=== PATIENT | male | born 1955 | race Hispanic/Latino ===

== ENCOUNTER 2018-06-01 18:53 | Inpatient (IN) | payer OTHER ==
[2018-06-01] MEDS ORDERED: Sodium Chloride 0.9% 1,000 ML IV STA ×2 (19:09→20:35)
[2018-06-01 19:47] LABS: BASO % 0.3 % (0.0-2.0); EOS % 0.2 % (0.0-4.0); HEMOGLOBIN 15.2 g/dL (12.0-18.0); LYMPH # 0.5 K/uL (1.0-4.3); LYMPH % 9.6 % (20.0-40.0); MEAN CELL VOLUME 91.9 fl (80.0-94.0); MEAN CORPUSCULAR HEMOGLOBIN 31.2 pg (27.0-31.0); MEAN CORPUSCULAR HGB CONC 33.9 g/dL (33.0-37.0); MEAN PLATELET VOLUME 8.3 fl (7.2-11.7); MONO % 0.5 % (0.0-10.0); NEUT # 4.5 K/uL (1.8-7.0); NEUT % 89.4 % (50.0-75.0); NRBC % 0.1 % (0.0-0.0); PLATELET COUNT 160 K/uL (130-400); RBC 4.86 Mil/uL (4.40-5.90); RED CELL DISTRIBUTION WIDTH 13.1 % (11.5-14.5)
[2018-06-01 19:47] LABS: VENOUS BLOOD GAS BASE EXCESS 0.4 mmol/L (0.0-2.0); VENOUS BLOOD GAS PCO2 30 mmHg (40-60); VENOUS BLOOD GAS PO2 55 mm/Hg (30-55); VENOUS BLOOD PH 7.49 (7.32-7.43)
[2018-06-01 19:48] LABS: INR 1.2; PROTHROMBIN TIME 14.6 Seconds (9.8-13.1)
[2018-06-01 19:51] LABS: PARTIAL THROMBOPLASTIN TIME 26.6 Seconds (25.6-37.1)
--- NOTE | 2018-06-01 19:57 | ED PDOC ---
HPI: Chest Pain Time Seen by Provider: 06/01/18 19:35 Chief Complaint (Nursing): Chest Pain Chief Complaint (Provider): Chest Pain History Per: Patient History/Exam Limitations: no limitations Additional Complaint(s): Patient is a 62 year old male with no past medical history, who presents to the emergency department complaining of a spiked temperature of 104 tympanic that was read at home. He is here with and states that he had chest pressure case finisher that has gone away now. Patient state he took x2 Ellis Aspirin case finisher. He is also complaining of generalized weakness for x1 day but no vomiting, diarrhea, dizziness, URI, or urinary symptoms. PMD: No provider Past Medical History Reviewed: Historical Data, Nursing Documentation, Vital Signs Vital Signs: Last Vital Signs Temp 104.5 F H 06/01/18 19:15 Pulse 118 H 06/01/18 19:41 Resp 24 06/01/18 19:41 BP 153/98 H 06/01/18 19:41 Pulse Ox 95 06/01/18 19:41 - Medical History PMH: No Chronic Diseases - Surgical History Surgical History: No Surg Hx - Family History Family History: States: Unknown Family Hx - Social History Current smoker - smoking cessation education provided: No Alcohol: None Drugs: Denies - Allergies Allergies/Adverse Reactions: Allergies Allergy/AdvReac Type Severity Reaction Status Date / Time No Known Allergies Allergy Verified 06/01/18 19:00 Review of Systems ROS Statement: Except As Marked, All Systems Reviewed And Found Negative Constitutional: Positive for: Fever ENT: Negative for: Nose Congestion Cardiovascular: Positive for: Chest Pain Respiratory: Negative for: Cough Gastrointestinal: Negative for: Vomiting, Diarrhea Genitourinary Male: Negative for: Dysuria, Frequency, Incontinence, Hematuria Neurological: Positive for: Weakness. Negative for: Dizziness Physical Exam - Reviewed Nursing Documentation Reviewed: Yes Vital Signs Reviewed: Yes - Physical Exam Appears: Positive for: Non-toxic, No Acute Distress Head Exam: Positive for: ATRAUMATIC, NORMOCEPHALIC Skin: Positive for: Diaphoresis Eye Exam: Positive for: Normal appearance, EOMI, PERRL ENT: Positive for: Normal ENT Inspection Neck: Positive for: Normal, Painless ROM, Supple Cardiovascular/Chest: Positive for: Regular Rate, Rhythm. Negative for: Murmur Respiratory: Positive for: Normal Breath Sounds. Negative for: Respiratory Distress Gastrointestinal/Abdominal: Positive for: Normal Exam, Soft. Negative for: Tenderness Back: Positive for: Normal Inspection. Negative for: L CVA Tenderness, R CVA Tenderness, Vertebral Tenderness Extremity: Positive for: Normal ROM. Negative for: Pedal Edema, Deformity Neurological/Psych: Positive for: Alert, Oriented - Laboratory Results Result Diagrams: 06/01/18 19:30 06/01/18 19:30 Lab Results: pO2 55 mm/Hg (30-55) 06/01/18 19:25 VBG pH 7.49 (7.32-7.43) H 06/01/18 19:25 VBG pCO2 30 mmHg (40-60) L 06/01/18 19:25 VBG HCO3 25.1 mmol/L 06/01/18 19:25 VBG Total CO2 23.8 mmol/L (22-28) 06/01/18 19:25 VBG O2 Sat (Calc) 96.2 % (40-65) H 06/01/18 19:25 VBG Base Excess 0.4 mmol/L (0.0-2.0) 06/01/18 19:25 VBG Potassium 3.1 mmol/L (3.6-5.2) L 06/01/18 19:25 Sodium 133.0 mmol/L (132-148) 06/01/18 19:25 Chloride 98.0 mmol/L (98-107) 06/01/18 19:25 Glucose 122 mg/dL (75-110) H 06/01/18 19:25 Lactate 2.4 mmol/L (0.7-2.1) H 06/01/18 19:25 FiO2 21.0 % 06/01/18 19:25 PT 14.6 Seconds (9.8-13.1) H 06/01/18 19:30 INR 1.2 06/01/18 19:30 APTT 26.6 Seconds (25.6-37.1) 06/01/18 19:30 - ECG ECG: Positive for: Interpreted By Me, Viewed By Me ECG Rhythm: Positive for: Sinus Tachycardia O2 Sat by Pulse Oximetry: 95 (RA) Pulse Ox Interpretation: Normal Medical Decision Making Medical Decision Making: Time: 1902 FEVER, SEPSIS RULE OUT FLU, PNEUMONIA, UTI AND OTHER ABNORMAL BLOOD TESTS Plan: Sepsis workup --Chest xray --VBG --EKG --CMP --Magnesium --Phosphorous --CBC with differential --PT --PTT --Blood culture --Urine culture --compliance monitor --Vital signs Q15 min --Influenza A B --Urinalysis --Tylenol 975 mg PO --Sodium Chloride 1,000ml Time: 2236 --Low potassium. Will replete it. --pt noted to be improved after medications, vitals better, pt less diaphoretic. --pt noted to have UTI, informed pt at bedside, he is aware of results and ag reeable for inpt stay given rigors before, and need for iv abx as well as blood and urine culture results while an inpatient Time: 2304 --Dr. Garcia medical service subcontract manager, called back and has accepted the patient. Scribe Attestation: Documented by Julito Romero, acting as a scribe forLata Beverly MD. Provider Scribe Attestation: All medical record entries made by the Scribe were at my direction and personally dictated by me. I have reviewed the chart and agree that the record accurately reflects my personal performance of the history, physical exam, medic al decision making, and the department course for this patient. I have also personally directed, reviewed, and agree with the discharge instructions and disposition Disposition - Clinical Impression Clinical Impression: Atypical chest pain, Sepsis, UTI (urinary tract infection) - Patient ED Disposition Is Patient to be Admitted: Yes - Disposition Disposition Time: 22:55 Condition: STABLE
[2018-06-01 19:58] LABS: ALB/GLOB RATIO 1.3 (1.0-2.1); ALBUMIN 4.4 g/dL (3.5-5.0); ALT/SGPT 20 U/L (21-72); AST/SGOT 31 U/L (17-59); BLOOD UREA NITROGEN 15 mg/dl (9-20); GFR NON-AFRICAN AMERICAN > 60
[2018-06-01 20:00] LABS: URINE BACTERIA RARE (<OCC); URINE BILIRUBIN NEGATIVE (NEGATIVE); URINE BLOOD MODERATE (NEGATIVE); URINE CLARITY SLIGHTY-CLOUDY (Clear); URINE COLOR YELLOW (YELLOW); URINE GLUCOSE (UA) NEG (NEGATIVE); URINE HYALINE CAST 0-2 /hpf (0-2); URINE LEUKOCYTE ESTERASE MOD Leu/uL (Negative); URINE PROTEIN 30 mg/dL (NEGATIVE); URINE UROBILINOGEN 0.2-1.0 mg/dL (0.2-1.0)
[2018-06-01 20:20] LABS: LYMPHOCYTE 10 % (20-50); MONOCYTE 3 % (0-10); NEUTROPHIL 87 % (42-75); PLATELET ESTIMATE NORMAL (NORMAL); TOTAL CELLS COUNTED 100
[2018-06-01] MEDS ORDERED: Potassium Chloride 20 mEq ER Tab PO STA (22:35)
[2018-06-01] MEDS ORDERED: Potassium Chloride 20 mEq ER Tab PO ONE (22:43)
[2018-06-01 22:46] LABS: VENOUS BLOOD GAS BASE EXCESS -1.1 mmol/L (0.0-2.0); VENOUS BLOOD GAS PCO2 34 mmHg (40-60); VENOUS BLOOD GAS PO2 59 mm/Hg (30-55); VENOUS BLOOD PH 7.43 (7.32-7.43)
[2018-06-01] MEDS ORDERED: cefTRIAXone (Rocephin) 1 gm Inj ONE (23:01)
[2018-06-02 06:27] VITALS: BMI 27.2
[2018-06-02 07:59] LABS: LDL CHOLESTEROL 77 mg/dL (0-129)
[2018-06-02 08:05] LABS: ALB/GLOB RATIO 1.2 (1.0-2.1); ALBUMIN 3.8 g/dL (3.5-5.0); ALT/SGPT 20 U/L (21-72); AST/SGOT 20 U/L (17-59); BLOOD UREA NITROGEN 19 mg/dl (9-20); CALCIUM 8.6 mg/dL (8.4-10.2); GFR NON-AFRICAN AMERICAN > 60; HDL CHOLESTEROL 35 MG/DL (30-70)
--- NOTE | 2018-06-02 08:24 | CARD ---
APPROVED REPORT Date of service: 06/01/2018 EKG Measurement Heart [id number] VT [id number] <Conclusion> Sinus tachycardia with short VT Left axis deviation Left ventricular hypertrophy with repolarization abnormality Inferior infarct, age undetermined Abnormal ECG
--- NOTE | 2018-06-02 08:25 | CARD ---
APPROVED REPORT Date of service: 06/01/2018 EKG Measurement Heart [id number] <Conclusion> Sinus tachycardia Possible Left atrial enlargement Left ventricular hypertrophy with repolarization abnormality Inferior infarct, age undetermined Abnormal ECG
[2018-06-02 08:58] LABS: BASO # 0.1 K/uL (0.0-0.2); BASO % 0.5 % (0.0-2.0); EOS # 0.1 K/uL (0.0-0.7); EOS % 0.3 % (0.0-4.0); HEMOGLOBIN 14.1 g/dL (12.0-18.0); LYMPH # 1.2 K/uL (1.0-4.3); LYMPH % 6.2 % (20.0-40.0); MEAN CELL VOLUME 94.4 fl (80.0-94.0); MEAN CORPUSCULAR HEMOGLOBIN 30.6 pg (27.0-31.0); MEAN CORPUSCULAR HGB CONC 32.5 g/dL (33.0-37.0); MEAN PLATELET VOLUME 8.4 fl (7.2-11.7); MONO # 1.3 K/uL (0.0-0.8); MONO % 6.4 % (0.0-10.0); NEUT # 17.3 K/uL (1.8-7.0); NEUT % 86.6 % (50.0-75.0); RBC 4.59 Mil/uL (4.40-5.90); RED CELL DISTRIBUTION WIDTH 13.5 % (11.5-14.5)
[2018-06-02] MEDS: Enoxaparin 40 mg Syringe SC SCH (09:07)
--- NOTE | 2018-06-02 09:52 | CP.PCM.CON ---
History of Present Illness - History of Present Illness History of Present Illness: 62-year-old active man came to the emergency room complaining of chills and body aches which included chest discomfort among other parts of the body as well. He is extremely active and rides his bicycle 4 miles without any chest discomfort. He has never been a smoker or hypertensive or diabetic and has not been on any medications. He gives family history of multiple members of his father's family who have had coronary artery disease number of them were smokers. Nobody on his mother's side has had vascular disease. The patient is not on any medications and denies prior history of having suffered severe chest discomfort accompanied by perspiration. There have never been symptoms of congestive cardiac failure. Physical examination shows a middle-aged man sitting up in bed finishing his breakfast, quite comfortable with his at bedside he was afebrile and breathes at 14 breaths/min and could carry on a conversation. His heart rate was 82 bpm regular and his blood pressure was 122/80 mmHg. His jugular venous pressure was not elevated and there was no edema over his lower extremities. The pedal pulses were well felt. There were no carotid bruits. Extremities were warm and nailbeds were pink. There was no central or peripheral cyanosis. There was no clubbing. There was no lymphadenopathy. The apex was not palpable the first and second heart sounds were normal. There was no murmur or gallop. There were no rales. Abdomen was soft liver and spleen were not palpable. His electrocardiogram on arrival in the emergency room shows sinus tachycardia with evidence of an old inferior wall myocardial infarction. A subsequent cardiogram shows similar findings. His lab data shows a normal troponin on arrival in the emergency room which 8 hours later was 0.13 ng/mL (mild rise compared to his troponin on arrival in the emergency room) his lactate levels on arrival in the emergency room where 2.4 mEq/L indicating severe reduction in tissue perfusion. The patient had significant leukocytosis this morning. Rest of his labs were noted. Impression: Sepsis probably secondary to urinary tract infection. Elevation of troponin secondary to reduced tissue perfusion during sepsis. 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 The patient is stable from cardiovascular point of view at this juncture. I have started him on aspirin. He will have an echocardiogram to evaluate his left ventricular systolic function and get his lipid profile drawn tomorrow. I will follow the patient with you thank you. Past Patient History - Past Social History Smoking Status: Never Smoked - CARDIAC Hx Cardiac Disorders: No - PULMONARY Hx Respiratory Disorders: No - NEUROLOGICAL Hx Neurological Disorder: No - HEENT Hx HEENT Problems: No - RENAL Hx Chronic Kidney Disease: No - ENDOCRINE/METABOLIC Hx Endocrine Disorders: No - HEMATOLOGICAL/ONCOLOGICAL Hx Blood Disorders: No Hx AIDS: No Hx Human Immunodeficiency Virus (HIV): No - INTEGUMENTARY Hx Dermatological Problems: No - MUSCULOSKELETAL/RHEUMATOLOGICAL Hx Musculoskeletal Disorders: No Hx Falls: No - GENITOURINARY/GYNECOLOGICAL Hx Genitourinary Disorders: No - PSYCHIATRIC Hx Psychophysiologic Disorder: No Hx Substance Use: No - SURGICAL HISTORY Hx Surgeries: No - ANESTHESIA Hx Anesthesia: No Hx Anesthesia Reactions: No Hx Malignant Hyperthermia: No Has any member of the family had a problem w/ anesthesia?: No Meds Allergies/Adverse Reactions: Allergies Allergy/AdvReac Type Severity Reaction Status Date / Time No Known Allergies Allergy Verified 06/01/18 19:00 - Medications Medications: Current Medications Acetaminophen (Tylenol 325mg Tab) 975 mg PO ONCE PRN PRN Reason: Fever >100.4 F Last Admin: 06/01/18 19:15 Dose: 975 mg Aspirin (Ecotrin) 81 mg PO DAILY ANNE Enoxaparin Sodium (Lovenox) 40 mg SC DAILY [facility]; Protocol Last Admin: 06/02/18 09:07 Dose: 40 mg Ceftriaxone Sodium 2 gm/ (Sodium Chloride) 100 mls @ 100 mls/hr IVPB DAILY [facility]; Protocol Results - Vital Signs Recent Vital Signs: Last Vital Signs Temp 97.5 F L 06/02/18 04:42 Pulse 77 06/02/18 04:42 Resp 18 06/02/18 04:42 BP 109/75 06/02/18 04:42 Pulse Ox 99 06/02/18 04:42 - Labs Result Diagrams: 06/02/18 06:10 06/02/18 06:10 Labs: Laboratory Results - last 24 hr 06/01/18 06/01/18 06/01/18 19:25 19:30 19:30 WBC 5.0 RBC 4.86 Hgb 15.2 Hct 44.7 MCV 91.9 MCH 31.2 H MCHC 33.9 RDW 13.1 Plt Count 160 MPV 8.3 Neut % (Auto) 89.4 H Lymph % (Auto) 9.6 L [place] % (Auto) 0.5 Eos % (Auto) 0.2 Baso % (Auto) 0.3 Neut # (Auto) 4.5 Lymph # (Auto) 0.5 L [place] # (Auto) 0.0 Eos # (Auto) 0.0 Baso # (Auto) 0.0 Neutrophils % (Manual) 87 H Lymphocytes % (Manual) 10 L Monocytes % (Manual) 3 Platelet Estimate Normal RBC Morphology Normal PT INR APTT pO2 55 VBG pH 7.49 H VBG pCO2 30 L VBG HCO3 25.1 VBG Total CO2 23.8 VBG O2 Sat (Calc) 96.2 H VBG Base Excess 0.4 VBG Potassium 3.1 L Sodium 133.0 135 Chloride 98.0 99 Glucose 122 H Lactate 2.4 H FiO2 21.0 Potassium 3.1 L Carbon Dioxide 22 Anion Gap 17 BUN 15 Creatinine 0.8 Est GFR ( Amer) > 60 Est GFR (Non-Af Amer) > 60 Random Glucose 122 H Calcium 9.0 Phosphorus 1.1 L Magnesium 1.6 Total Bilirubin 1.6 H AST 31 ALT 20 L Alkaline Phosphatase 66 Troponin I < 0.0120 Total Protein 7.7 Albumin 4.4 Globulin 3.4 Albumin/Globulin Ratio 1.3 Triglycerides Cholesterol LDL Cholesterol Direct HDL Cholesterol Vitamin B12 TSH 3rd Generation Venous Blood Potassium 3.1 L Urine Color Urine Clarity Urine pH Ur Specific [place] Urine Protein Urine Glucose (UA) Urine Ketones Urine Blood Urine Nitrate Urine Bilirubin Urine Urobilinogen Ur Leukocyte Esterase Urine RBC (Auto) Urine Microscopic WBC Urine Bacteria Hyaline Casts Influenza Typ A,B (EIA) 06/01/18 06/01/18 06/01/18 19:30 19:30 19:42 WBC RBC Hgb Hct MCV MCH MCHC RDW Plt Count MPV Neut % (Auto) Lymph % (Auto) [place] % (Auto) Eos % (Auto) Baso % (Auto) Neut # (Auto) Lymph # (Auto) [place] # (Auto) Eos # (Auto) Baso # (Auto) Neutrophils % (Manual) Lymphocytes % (Manual) Monocytes % (Manual) Platelet Estimate RBC Morphology PT 14.6 H INR 1.2 APTT 26.6 pO2 VBG pH VBG pCO2 VBG HCO3 VBG Total CO2 VBG O2 Sat (Calc) VBG Base Excess VBG Potassium Sodium Chloride Glucose Lactate FiO2 Potassium Carbon Dioxide Anion Gap BUN Creatinine Est GFR ( Amer) Est GFR (Non-Af Amer) Random Glucose Calcium Phosphorus Magnesium Total Bilirubin AST ALT Alkaline Phosphatase Troponin I Total Protein Albumin Globulin Albumin/Globulin Ratio Triglycerides Cholesterol LDL Cholesterol Direct HDL Cholesterol Vitamin B12 TSH 3rd Generation Venous Blood Potassium Urine Color Yellow Urine Clarity Slighty-cloudy Urine pH 6.0 Ur Specific [place] 1.014 Urine Protein 30 Urine Glucose (UA) Neg Urine Ketones Negative Urine Blood Moderate Urine Nitrate Negative Urine Bilirubin Negative Urine Urobilinogen 0.2-1.0 Ur Leukocyte Esterase Mod Urine RBC (Auto) 10 H Urine Microscopic WBC 22 H Urine Bacteria Rare Hyaline Casts 0-2 Influenza Typ A,B (EIA) Negative for flu a/b 06/01/18 06/02/18 06/02/18 22:35 06:10 06:10 WBC 20.0 H D RBC 4.59 Hgb 14.1 Hct 43.3 MCV 94.4 H D MCH 30.6 MCHC 32.5 L RDW 13.5 Plt Count 138 MPV 8.4 Neut % (Auto) 86.6 H Lymph % (Auto) 6.2 L [place] % (Auto) 6.4 Eos % (Auto) 0.3 Baso % (Auto) 0.5 Neut # (Auto) 17.3 H Lymph # (Auto) 1.2 [place] # (Auto) 1.3 H Eos # (Auto) 0.1 Baso # (Auto) 0.1 Neutrophils % (Manual) Lymphocytes % (Manual) Monocytes % (Manual) Platelet Estimate RBC Morphology PT INR APTT pO2 59 H VBG pH 7.43 VBG pCO2 34 L VBG HCO3 23.9 VBG Total CO2 23.6 VBG O2 Sat (Calc) 95.9 H VBG Base Excess -1.1 L VBG Potassium 2.9 L Sodium 137.0 140 Chloride 105.0 106 Glucose 103 Lactate 1.3 FiO2 21.0 Potassium 4.1 Carbon Dioxide 23 Anion Gap 15 BUN 19 Creatinine 1.1 Est GFR ( Amer) > 60 Est GFR (Non-Af Amer) > 60 Random Glucose 89 Calcium 8.6 Phosphorus Magnesium Total Bilirubin 1.7 H AST 20 ALT 20 L Alkaline Phosphatase 50 Troponin I 0.1310 H* Total Protein 6.9 Albumin 3.8 Globulin 3.1 Albumin/Globulin Ratio 1.2 Triglycerides 58 Cholesterol 134 LDL Cholesterol Direct 77 HDL Cholesterol 35 Vitamin B12 401 TSH 3rd Generation 2.29 Venous Blood Potassium 2.9 L Urine Color Urine Clarity Urine pH Ur Specific [place] Urine Protein Urine Glucose (UA) Urine Ketones Urine Blood Urine Nitrate Urine Bilirubin Urine Urobilinogen Ur Leukocyte Esterase Urine RBC (Auto) Urine Microscopic WBC Urine Bacteria Hyaline Casts Influenza Typ A,B (EIA)
--- NOTE | 2018-06-02 10:08 | RAD ---
Date of service: 06/01/2018 HISTORY: Sepsis Patient COMPARISON: No prior study available comparison. TECHNIQUE: 1 view obtained. FINDINGS: LUNGS: No active pulmonary disease. PLEURA: No significant pleural effusion identified, no pneumothorax apparent. CARDIOVASCULAR: No aortic atherosclerotic calcification present. Heart is mildly enlarged. No pulmonary vascular congestion. OSSEOUS STRUCTURES: No significant abnormalities. VISUALIZED UPPER ABDOMEN: Normal. OTHER FINDINGS: None. IMPRESSION: No active disease.
[2018-06-02] MEDS: cefTRIAXone 2 GM in Sodium Chloride 0.9% 100 ML IVPB SCH (10:24)
--- NOTE | 2018-06-02 12:37 | CP.PCM.CON ---
Past Patient History - Past Social History Smoking Status: Never Smoked - CARDIAC Hx Cardiac Disorders: No - PULMONARY Hx Respiratory Disorders: No - NEUROLOGICAL Hx Neurological Disorder: No - HEENT Hx HEENT Problems: No - RENAL Hx Chronic Kidney Disease: No - ENDOCRINE/METABOLIC Hx Endocrine Disorders: No - HEMATOLOGICAL/ONCOLOGICAL Hx Blood Disorders: No Hx AIDS: No Hx Human Immunodeficiency Virus (HIV): No - INTEGUMENTARY Hx Dermatological Problems: No - MUSCULOSKELETAL/RHEUMATOLOGICAL Hx Musculoskeletal Disorders: No Hx Falls: No - GENITOURINARY/GYNECOLOGICAL Hx Genitourinary Disorders: No - PSYCHIATRIC Hx Psychophysiologic Disorder: No Hx Substance Use: No - SURGICAL HISTORY Hx Surgeries: No - ANESTHESIA Hx Anesthesia: No Hx Anesthesia Reactions: No Hx Malignant Hyperthermia: No Has any member of the family had a problem w/ anesthesia?: No Meds Allergies/Adverse Reactions: Allergies Allergy/AdvReac Type Severity Reaction Status Date / Time No Known Allergies Allergy Verified 06/01/18 19:00 - Medications Medications: Current Medications Acetaminophen (Tylenol 325mg Tab) 975 mg PO ONCE PRN PRN Reason: Fever >100.4 F Last Admin: 06/01/18 19:15 Dose: 975 mg Aspirin (Ecotrin) 81 mg PO DAILY ANNE Last Admin: 06/02/18 10:32 Dose: 81 mg Enoxaparin Sodium (Lovenox) 40 mg SC DAILY [facility]; Protocol Last Admin: 06/02/18 09:07 Dose: 40 mg Ceftriaxone Sodium 2 gm/ (Sodium Chloride) 100 mls @ 100 mls/hr IVPB DAILY [facility]; Protocol Last Admin: 06/02/18 10:24 Dose: 100 mls/hr Results - Vital Signs Recent Vital Signs: Last Vital Signs Temp 97.5 F L 06/02/18 04:42 Pulse 77 06/02/18 09:00 Resp 18 06/02/18 04:42 BP 109/75 06/02/18 04:42 Pulse Ox 99 06/02/18 04:42 - Labs Result Diagrams: 06/02/18 06:10 06/02/18 06:10 Labs: Laboratory Results - last 24 hr 06/01/18 06/01/18 06/01/18 19:25 19:30 19:30 WBC 5.0 RBC 4.86 Hgb 15.2 Hct 44.7 MCV 91.9 MCH 31.2 H MCHC 33.9 RDW 13.1 Plt Count 160 MPV 8.3 Neut % (Auto) 89.4 H Lymph % (Auto) 9.6 L [place] % (Auto) 0.5 Eos % (Auto) 0.2 Baso % (Auto) 0.3 Neut # (Auto) 4.5 Lymph # (Auto) 0.5 L [place] # (Auto) 0.0 Eos # (Auto) 0.0 Baso # (Auto) 0.0 Neutrophils % (Manual) 87 H Lymphocytes % (Manual) 10 L Monocytes % (Manual) 3 Platelet Estimate Normal RBC Morphology Normal PT INR APTT pO2 55 VBG pH 7.49 H VBG pCO2 30 L VBG HCO3 25.1 VBG Total CO2 23.8 VBG O2 Sat (Calc) 96.2 H VBG Base Excess 0.4 VBG Potassium 3.1 L Sodium 133.0 135 Chloride 98.0 99 Glucose 122 H Lactate 2.4 H FiO2 21.0 Potassium 3.1 L Carbon Dioxide 22 Anion Gap 17 BUN 15 Creatinine 0.8 Est GFR ( Amer) > 60 Est GFR (Non-Af Amer) > 60 Random Glucose 122 H Calcium 9.0 Phosphorus 1.1 L Magnesium 1.6 Total Bilirubin 1.6 H AST 31 ALT 20 L Alkaline Phosphatase 66 Troponin I < 0.0120 Total Protein 7.7 Albumin 4.4 Globulin 3.4 Albumin/Globulin Ratio 1.3 Triglycerides Cholesterol LDL Cholesterol Direct HDL Cholesterol Vitamin B12 TSH 3rd Generation Venous Blood Potassium 3.1 L Urine Color Urine Clarity Urine pH Ur Specific [place] Urine Protein Urine Glucose (UA) Urine Ketones Urine Blood Urine Nitrate Urine Bilirubin Urine Urobilinogen Ur Leukocyte Esterase Urine RBC (Auto) Urine Microscopic WBC Urine Bacteria Hyaline Casts Influenza Typ A,B (EIA) 06/01/18 06/01/18 06/01/18 19:30 19:30 19:42 WBC RBC Hgb Hct MCV MCH MCHC RDW Plt Count MPV Neut % (Auto) Lymph % (Auto) [place] % (Auto) Eos % (Auto) Baso % (Auto) Neut # (Auto) Lymph # (Auto) [place] # (Auto) Eos # (Auto) Baso # (Auto) Neutrophils % (Manual) Lymphocytes % (Manual) Monocytes % (Manual) Platelet Estimate RBC Morphology PT 14.6 H INR 1.2 APTT 26.6 pO2 VBG pH VBG pCO2 VBG HCO3 VBG Total CO2 VBG O2 Sat (Calc) VBG Base Excess VBG Potassium Sodium Chloride Glucose Lactate FiO2 Potassium Carbon Dioxide Anion Gap BUN Creatinine Est GFR ( Amer) Est GFR (Non-Af Amer) Random Glucose Calcium Phosphorus Magnesium Total Bilirubin AST ALT Alkaline Phosphatase Troponin I Total Protein Albumin Globulin Albumin/Globulin Ratio Triglycerides Cholesterol LDL Cholesterol Direct HDL Cholesterol Vitamin B12 TSH 3rd Generation Venous Blood Potassium Urine Color Yellow Urine Clarity Slighty-cloudy Urine pH 6.0 Ur Specific [place] 1.014 Urine Protein 30 Urine Glucose (UA) Neg Urine Ketones Negative Urine Blood Moderate Urine Nitrate Negative Urine Bilirubin Negative Urine Urobilinogen 0.2-1.0 Ur Leukocyte Esterase Mod Urine RBC (Auto) 10 H Urine Microscopic WBC 22 H Urine Bacteria Rare Hyaline Casts 0-2 Influenza Typ A,B (EIA) Negative for flu a/b 06/01/18 06/02/18 06/02/18 22:35 06:10 06:10 WBC 20.0 H D RBC 4.59 Hgb 14.1 Hct 43.3 MCV 94.4 H D MCH 30.6 MCHC 32.5 L RDW 13.5 Plt Count 138 MPV 8.4 Neut % (Auto) 86.6 H Lymph % (Auto) 6.2 L [place] % (Auto) 6.4 Eos % (Auto) 0.3 Baso % (Auto) 0.5 Neut # (Auto) 17.3 H Lymph # (Auto) 1.2 [place] # (Auto) 1.3 H Eos # (Auto) 0.1 Baso # (Auto) 0.1 Neutrophils % (Manual) Lymphocytes % (Manual) Monocytes % (Manual) Platelet Estimate RBC Morphology PT INR APTT pO2 59 H VBG pH 7.43 VBG pCO2 34 L VBG HCO3 23.9 VBG Total CO2 23.6 VBG O2 Sat (Calc) 95.9 H VBG Base Excess -1.1 L VBG Potassium 2.9 L Sodium 137.0 140 Chloride 105.0 106 Glucose 103 Lactate 1.3 FiO2 21.0 Potassium 4.1 Carbon Dioxide 23 Anion Gap 15 BUN 19 Creatinine 1.1 Est GFR ( Amer) > 60 Est GFR (Non-Af Amer) > 60 Random Glucose 89 Calcium 8.6 Phosphorus Magnesium Total Bilirubin 1.7 H AST 20 ALT 20 L Alkaline Phosphatase 50 Troponin I 0.1310 H* Total Protein 6.9 Albumin 3.8 Globulin 3.1 Albumin/Globulin Ratio 1.2 Triglycerides 58 Cholesterol 134 LDL Cholesterol Direct 77 HDL Cholesterol 35 Vitamin B12 401 TSH 3rd Generation 2.29 Venous Blood Potassium 2.9 L Urine Color Urine Clarity Urine pH Ur Specific [place] Urine Protein Urine Glucose (UA) Urine Ketones Urine Blood Urine Nitrate Urine Bilirubin Urine Urobilinogen Ur Leukocyte Esterase Urine RBC (Auto) Urine Microscopic WBC Urine Bacteria Hyaline Casts Influenza Typ A,B (EIA)
--- NOTE | 2018-06-02 19:29 | CARD ---
APPROVED REPORT Date of service: 06/02/2018 EKG Measurement Heart [id number] <Conclusion> Normal sinus rhythm with sinus arrhythmia Moderate voltage criteria for LVH, may be normal variant Inferior infarct, age undetermined Abnormal ECG
--- NOTE | 2018-06-02 21:17 | HP ---
CHIEF COMPLAINT: . HISTORY OF PRESENT ILLNESS: This is a 68-year-old male without significant past medical history who was having very high fever up to 104 at home and did not get better and was also feeling generalized weakness for a few days, so the patient was brought to the emergency room and was admitted for further management. REVIEW OF SYSTEMS: Positive for high fever, generalized malaise and weakness. Review of systems was otherwise negative for headache, dizziness, syncope, loss of consciousness, chest pain, shortness of breath, nausea, vomiting, diarrhea, constipation, and any new joint or extremity pain. Review of systems of all other organ system is unremarkable. Of note, the patient is very extremely physically active person and runs about 4 to 5 miles a day without any chest discomfort. PAST MEDICAL HISTORY: Unremarkable. PAST SURGICAL HISTORY: Unremarkable. PERSONAL HISTORY: The patient is currently nonsmoker, nondrinker. No substance abuse. MEDICATIONS: The patient is not on any medications. ALLERGIES: THE PATIENT IS NOT ALLERGIC TO ANY MEDICATIONS. FAMILY HISTORY: Noncontributory. PHYSICAL EXAMINATION: GENERAL: Well-built, well-nourished, 62-year-old male, in no acute distress. VITAL SIGNS: Temperature 97.5, pulse 77, respirations 18, blood pressure 109/75, and saturation 99%. HEENT: Pupils reacting to light. No JVD. No thyromegaly. No lymphadenopathy. No nystagmus. Normocephalic, atraumatic skull. HEART: S1 and S2 normal and regular. No significant murmur, gallop, or rub is heard. LUNGS: Good bilateral air exchange. No rales or rhonchi. ABDOMEN: Soft, nontender. No organomegaly. No fluid. Bowel sounds are grossly normal. EXTREMITIES: Some edema. No calf swelling. No tenderness. No acute ischemia. CENTRAL NERVOUS EXAMINATION: The patient is alert, wake, and oriented x3. There are no sign of any acute gross focal motor or sensory neurological deficits. DIAGNOSTIC DATA: Available diagnostic data reviewed. WBC 20, hemoglobin 14.1, hematocrit 43.4, and platelets 138. Sodium 140, potassium 4.1, chloride 106, bicarbonate 23, BUN 19, creatinine 1.1. SMA-12 is unremarkable. Troponin level is 1310. EKG does not reveal any acute ST-T changes, but the patient is tachycardic with rate of 143. Telemetry monitoring also reveals tachycardia but no other significant arrhythmias. Lactic level was 2.4. ADMITTING IMPRESSION: Sepsis, urinary tract infection, cardiac arrhythmias, rule out coronary artery disease. PLAN: As ordered. Case and plan discussed with the patient. Santhosh Garcia MD
--- NOTE | 2018-06-02 22:02 | CP.PCM.CON ---
History of Present Illness - History of Present Illness History of Present Illness: 62 year old male with no past medical history is referred for ID eval of gram negative sepsis - source unclear but believed to be due to UTI Patient c/o sudden onset of fever and chills on the day of admission Denies respiratory GI or symptoms No travel No pets PMH - denied SH non drinker non smoker No IVDU NKA FH non contributory ROS negative Review of Systems - Review of Systems All systems: reviewed and no additional remarkable complaints except - Constitutional Constitutional: As Per HPI, Chills, Fever, Malaise. absent: Weight Loss - EENT Eyes: absent: As Per HPI, Blind Spots, Blurred Vision, Change in Vision, Decreased Night Vision, Diplopia, Discharge, Dry Eye, Exophthalmos, Floaters, Irritation, Itchy Eyes, Loss of Peripheral Vision, Pain, Photophobia, Requires Corrective Lenses, Sees Flashes, Spots in Vision, Tunnel Vision, Other Visual Disturbances, Loss of Vision, Other Ears: absent: As Per HPI, Decreased Hearing, Ear Discharge, Ear Pain, Tinnitus, Abnormal Hearing, Disequilibrium, Dizziness, Other Nose/Mouth/Throat: absent: As Per HPI, Epistaxis, Nasal Congestion, Nasal Discharge, Nasal Obstruction, Nasal Trauma, Nose Pain, Post Nasal Drip, Sinus Pain, Sinus Pressure, Bleeding Gums, Change in Voice, Dental Pain, Dry Mouth, Dysphagia, Halitosis, Hoarsness, Lip Swelling, Mouth Lesions, Mouth Pain, Odynophagia, Sore Throat, Throat Swelling, Tongue Swelling, Facial Pain, Neck Pain, Neck Mass, Other - Cardiovascular Cardiovascular: absent: As Per HPI, Acrocyanosis, Chest Pain, Chest Pain at Rest, Chest Pain with Activity, Claudication, Diaphoresis, Dyspnea, Dyspnea on Exertion, Edema, Irregular Heart Rhythm, Pain Radiating to Arm/Neck/Jaw, Leg Edema, Leg Ulcers, Lightheadedness, Orthopnea, Palpitations, Paroxysmal Nocturnal Dyspnea, Pedal Edema, Radiating Pain, Rapid Heart Rate, Slow Heart Rate, Syncope, Other - Respiratory Respiratory: absent: As Per HPI, Cough, Dyspnea, Hemoptysis, Dyspnea on Exertion, Wheezing, Snoring, Stridor, Pain on Inspiration, Chest Congestion, Excessive Mucous Production, Change in Mucous Color, Pain with Coughing, Other - Gastrointestinal Gastrointestinal: absent: As Per HPI, Abdominal Pain, Belching, Bloating, Change in Bowel Habits, Change in Stool Character, Coffee Ground Emesis, Constipation, Cramping, Diarrhea, Dyspepsia, Dysphagia, Early Satiety, Excessive Flatus, Fecal Incontinence, Heartburn, Hematemesis, Hematochezia, Loose Stools, Melena, Nausea, Odynophagia, Temesmus, Vomiting, Other - Genitourinary Genitourinary: absent: As Per HPI, Change in Urinary Stream, Difficulty Urinatin g, Dysuria, Flank Pain, Hematuria, Pyuria, Nocturia, Urinary Incontinence, Urinary Frequency, Urinary Hesitance, Urinary Urgency, Voiding Freq/Small Amts, Freq UTI, Hx Renal/Bladder Calculi, Hx /Renal Surgery, Bladder Distension, Other - Musculoskeletal Musculoskeletal: absent: As Per HPI, Abnormal Gait, Arthralgias, Atrophy, Back Pain, Deformity, Joint Swelling, Limited Range of Motion, Loss of Height, Muscle Cramps, Muscle Weakness, Myalgias, Neck Pain, Numbness, Radiating Pain into Limb, Stiffness, Tingling, Other - Integumentary Integumentary: absent: As Per HPI, Acne, Alopecia, Bleeding Lesions, Change in Hair, Change in Nails, Change in Pigmentation, Changing Lesions, Dry Skin, Erythema, Furuncle, Hirsutism, Lesions, New Lesions, Non-Healing Lesions, Photosensitivity, Pruritus, Rash, Skin Pain, Skin Ulcer, Sores, Striae, Swelling, Unusual Bruising, Wounds, Jaundice, Other - Neurological Neurological: absent: As Per HPI, Abnormal Gait, Abnormal Hearing, Abnormal Movements, Abnormal Speech, Behavioral Changes, Burning Sensations, Confusion, Convulsions, Disequilibrium, Dizziness, Numbness, Focal Weakness, Frequent Falls, Headaches, Lack of Coordination, Loss of Vision, Memory Loss, Paresthesias, Radicular Pain, Restless Legs, Sensory Deficit, Syncope, Tingling, Tremor, Vertigo, Weakness, Other Visual Disturbances, Other - Psychiatric Psychiatric: absent: As Per HPI, Abnormal Sleep Pattern, Anhedonia, Anxiety, Auditory Hallucinations, Behavioral Changes, Change in Appetite, Change in Libido, Confusion, Depression, Difficulty Concentrating, Hallucinations, Homicidal Ideation, Hopelessness, Irritability, Memory Loss, Mood Swings, Panic Attacks, Paranoia, Suicidal Ideation, Visual Hallucinations, Tactile Hallucin ations, Other - Endocrine Endocrine: absent: As Per HPI, Change in Body Appearance, Change in Libido, Cold Intolorance, Deepening of Voice, Excessive Sweating, Fatigue, Flushing, Heat Intolorance, Increase in Ring/Shoe/Hat Size, Palpitations, Polydipsia, Polyph agia, Polyuria, Other - Hematologic/Lymphatic Hematologic: absent: As Per HPI, Easy Bleeding, Easy Bruising, Lymphadenopathy, Other Past Patient History - Past Social History Smoking Status: Never Smoked - CARDIAC Hx Cardiac Disorders: No - PULMONARY Hx Respiratory Disorders: No - NEUROLOGICAL Hx Neurological Disorder: No - HEENT Hx HEENT Problems: No - RENAL Hx Chronic Kidney Disease: No - ENDOCRINE/METABOLIC Hx Endocrine Disorders: No - HEMATOLOGICAL/ONCOLOGICAL Hx Blood Disorders: No Hx AIDS: No Hx Human Immunodeficiency Virus (HIV): No - INTEGUMENTARY Hx Dermatological Problems: No - MUSCULOSKELETAL/RHEUMATOLOGICAL Hx Musculoskeletal Disorders: No Hx Falls: No - GENITOURINARY/GYNECOLOGICAL Hx Genitourinary Disorders: No - PSYCHIATRIC Hx Psychophysiologic Disorder: No Hx Substance Use: No - SURGICAL HISTORY Hx Surgeries: No - ANESTHESIA Hx Anesthesia: No Hx Anesthesia Reactions: No Hx Malignant Hyperthermia: No Has any member of the family had a problem w/ anesthesia?: No Meds Allergies/Adverse Reactions: Allergies Allergy/AdvReac Type Severity Reaction Status Date / Time No Known Allergies Allergy Verified 06/01/18 19:00 - Medications Medications: Current Medications Acetaminophen (Tylenol 325mg Tab) 650 mg PO Q4 PRN PRN Reason: Fever >100.4 F Last Admin: 06/02/18 20:55 Dose: 650 mg Aspirin (Ecotrin) 81 mg PO DAILY [facility] Last Admin: 06/02/18 10:32 Dose: 81 mg Enoxaparin Sodium (Lovenox) 40 mg SC DAILY [facility]; Protocol Last Admin: 06/02/18 09:07 Dose: 40 mg Ceftriaxone Sodium 2 gm/ (Sodium Chloride) 100 mls @ 100 mls/hr IVPB DAILY [facility]; Protocol Last Admin: 06/02/18 10:24 Dose: 100 mls/hr Physical Exam - Constitutional Appears: Non-toxic, Chronically Ill - Head Exam Head Exam: NORMOCEPHALIC - Eye Exam Eye Exam: absent: Scleral icterus Pupil Exam: NORMAL ACCOMODATION - ENT Exam ENT Exam: Mucous Membranes Dry - Neck Exam Neck exam: Positive for: Normal Inspection - Respiratory Exam Respiratory Exam: Clear to Auscultation Bilateral, NORMAL BREATHING PATTERN - Cardiovascular Exam Cardiovascular Exam: REGULAR RHYTHM - GI/Abdominal Exam GI & Abdominal Exam: Normal Bowel Sounds, Soft. absent: Tenderness - Rectal Exam Rectal Exam: NORMAL INSPECTION - Exam Exam: Circumcision, NORMAL INSPECTION External exam: NORMAL EXTERNAL EXAM Speculum exam: NORMAL SPECULUM EXAM Bimanual exam: NORMAL BIMANUAL EXAM - Extremities Exam Extremities exam: Positive for: normal inspection - Back Exam Back exam: NORMAL INSPECTION - Neurological Exam Neurological exam: Alert, CN II-XII Intact, Normal Gait, Oriented x3, Reflexes Normal - Psychiatric Exam Psychiatric exam: Normal Affect, Normal Mood - Skin Skin Exam: Dry, Intact, Normal Color, Warm Results - Vital Signs Recent Vital Signs: Last Vital Signs Temp 101.1 F H 06/02/18 20:55 Pulse 96 H 06/02/18 19:55 Resp 16 06/02/18 19:55 BP 150/91 H 06/02/18 19:55 Pulse Ox 98 06/02/18 19:55 - Labs Result Diagrams: 06/02/18 06:10 06/02/18 06:10 Labs: Laboratory Results - last 24 hr 06/01/18 06/02/18 06/02/18 22:35 06:10 06:10 WBC 20.0 H D RBC 4.59 Hgb 14.1 Hct 43.3 MCV 94.4 H D MCH 30.6 MCHC 32.5 L RDW 13.5 Plt Count 138 MPV 8.4 Neut % (Auto) 86.6 H Lymph % (Auto) 6.2 L [place] % (Auto) 6.4 Eos % (Auto) 0.3 Baso % (Auto) 0.5 Neut # (Auto) 17.3 H Lymph # (Auto) 1.2 [place] # (Auto) 1.3 H Eos # (Auto) 0.1 Baso # (Auto) 0.1 pO2 59 H VBG pH 7.43 VBG pCO2 34 L VBG HCO3 23.9 VBG Total CO2 23.6 VBG O2 Sat (Calc) 95.9 H VBG Base Excess -1.1 L VBG Potassium 2.9 L Sodium 137.0 140 Chloride 105.0 106 Glucose 103 Lactate 1.3 FiO2 21.0 Potassium 4.1 Carbon Dioxide 23 Anion Gap 15 BUN 19 Creatinine 1.1 Est GFR ( Amer) > 60 Est GFR (Non-Af Amer) > 60 Random Glucose 89 Calcium 8.6 Total Bilirubin 1.7 H AST 20 ALT 20 L Alkaline Phosphatase 50 Troponin I 0.1310 H* Total Protein 6.9 Albumin 3.8 Globulin 3.1 Albumin/Globulin Ratio 1.2 Triglycerides 58 Cholesterol 134 LDL Cholesterol Direct 77 HDL Cholesterol 35 Vitamin B12 401 TSH 3rd Generation 2.29 Venous Blood Potassium 2.9 L 06/02/18 12:15 WBC RBC Hgb Hct MCV MCH MCHC RDW Plt Count MPV Neut % (Auto) Lymph % (Auto) [place] % (Auto) Eos % (Auto) Baso % (Auto) Neut # (Auto) Lymph # (Auto) [place] # (Auto) Eos # (Auto) Baso # (Auto) pO2 VBG pH VBG pCO2 VBG HCO3 VBG Total CO2 VBG O2 Sat (Calc) VBG Base Excess VBG Potassium Sodium Chloride Glucose Lactate FiO2 Potassium Carbon Dioxide Anion Gap BUN Creatinine Est GFR ( Amer) Est GFR (Non-Af Amer) Random Glucose Calcium Total Bilirubin AST ALT Alkaline Phosphatase Troponin I 0.1510 H* Total Protein Albumin Globulin Albumin/Globulin Ratio Triglycerides Cholesterol LDL Cholesterol Direct HDL Cholesterol Vitamin B12 TSH 3rd Generation Venous Blood Potassium Assessment & Plan (1) Atypical chest pain Status: Acute (2) Sepsis Status: Acute (3) UTI (urinary tract infection) Status: Acute - Assessment and Plan (Free Text) Assessment: gram neg sepsis source unclear consider CT chest abd pelvis to r/o occult abscess await cultures and sensitivities Plan: cont IV rocephin
[2018-06-03 05:44] LABS: ALB/GLOB RATIO 1.1 (1.0-2.1); ALBUMIN 3.4 g/dL (3.5-5.0); ALT/SGPT 27 U/L (21-72); AST/SGOT 27 U/L (17-59); BLOOD UREA NITROGEN 17 mg/dl (9-20); CALCIUM 8.6 mg/dL (8.4-10.2); GFR NON-AFRICAN AMERICAN > 60; HDL CHOLESTEROL 29 MG/DL (30-70)
[2018-06-03 05:50] LABS: HEMOGLOBIN 13.7 g/dL (12.0-18.0); MEAN CORPUSCULAR HEMOGLOBIN 31.5 pg (27.0-31.0); MEAN CORPUSCULAR HGB CONC 33.5 g/dL (33.0-37.0); RBC 4.36 Mil/uL (4.40-5.90); RED CELL DISTRIBUTION WIDTH 13.7 % (11.5-14.5); WHITE BLOOD COUNT 10.7 K/uL (4.8-10.8)
[2018-06-03 05:53] LABS: LDL CHOLESTEROL 84 mg/dL (0-129)
--- NOTE | 2018-06-03 07:55 | CP.PCM.HP ---
<DanielChampo - Last Filed: 06/03/18 11:04> History of Present Illness - History of Present Illness History of Present Illness: 62 y/o M presented to ED due to fever, chest pressure and generalized weakness. Pt was noted to have UTI and admitted for management. Blood cultures showed gram negative cory bacteremia. --Today, pt was mikael nd examined by bedside with Dr Garcia, pt reported feeling well, c/o of generalized weakness only. Pt tolerating PO, had a fever of 101.1 F overnight. Pt denies chills, dizziness, chest pain, SOB, palpitations, N/V/D, dysuria or hermaturia. PMD: None NKDA Meds: none PMHx: denied PSHx: denied FHx: HTN and DM SHx: Never smoker. Ocasional alcohol, 4 glasses of wine a week in different days. No rec drug use. Present on Admission - Present on Admission Any Indicators Present on Admission: No Review of Systems - Constitutional Constitutional: Fever, Weakness. absent: Chills, Weight Loss - EENT Nose/Mouth/Throat: absent: Nasal Congestion, Sore Throat, Neck Mass - Cardiovascular Cardiovascular: absent: Chest Pain, Claudication, Dyspnea, Edema - Respiratory Respiratory: absent: Cough, Dyspnea, Hemoptysis - Gastrointestinal Gastrointestinal: absent: Abdominal Pain, Diarrhea, Nausea, Vomiting - Genitourinary Genitourinary: absent: Dysuria, Flank Pain, Hematuria Past Patient History - Past Social History Smoking Status: Never Smoked - CARDIAC Hx Cardiac Disorders: No - PULMONARY Hx Respiratory Disorders: No - NEUROLOGICAL Hx Neurological Disorder: No - HEENT Hx HEENT Problems: No - RENAL Hx Chronic Kidney Disease: No - ENDOCRINE/METABOLIC Hx Endocrine Disorders: No - HEMATOLOGICAL/ONCOLOGICAL Hx Blood Disorders: No Hx AIDS: No Hx Human Immunodeficiency Virus (HIV): No - INTEGUMENTARY Hx Dermatological Problems: No - MUSCULOSKELETAL/RHEUMATOLOGICAL Hx Musculoskeletal Disorders: No Hx Falls: No - GENITOURINARY/GYNECOLOGICAL Hx Genitourinary Disorders: No - PSYCHIATRIC Hx Psychophysiologic Disorder: No Hx Substance Use: No - SURGICAL HISTORY Hx Surgeries: No - ANESTHESIA Hx Anesthesia: No Hx Anesthesia Reactions: No Hx Malignant Hyperthermia: No Has any member of the family had a problem w/ anesthesia?: No Meds Allergies/Adverse Reactions: Allergies Allergy/AdvReac Type Severity Reaction Status Date / Time No Known Allergies Allergy Verified 06/01/18 19:00 Physical Exam - Constitutional Appears: Well, No Acute Distress - Head Exam Head Exam: ATRAUMATIC, NORMAL INSPECTION - Eye Exam Eye Exam: EOMI - ENT Exam ENT Exam: Mucous Membranes Moist - Neck Exam Neck exam: Positive for: Full Rom, Normal Inspection. Negative for: Meningismus - Respiratory Exam Respiratory Exam: Clear to Auscultation Bilateral, NORMAL BREATHING PATTERN - Cardiovascular Exam Cardiovascular Exam: REGULAR RHYTHM, +S1, +S2 - GI/Abdominal Exam GI & Abdominal Exam: Soft. absent: Distended, Guarding, Rebound, Rigid, Tenderness - Extremities Exam Extremities exam: Positive for: full ROM. Negative for: calf tenderness, pedal edema - Back Exam Back exam: absent: CVA tenderness (L), CVA tenderness (R) - Neurological Exam Neurological exam: Alert, Oriented x3 Results - Vital Signs Recent Vital Signs: Last Vital Signs Temp 100.1 F H 06/03/18 07:48 Pulse 81 06/03/18 07:48 Resp 18 06/03/18 07:48 BP 162/104 H 06/03/18 07:48 Pulse Ox 97 06/03/18 07:48 - Labs Result Diagrams: 06/03/18 04:55 06/03/18 04:55 Labs: Laboratory Results - last 24 hr 06/02/18 06/02/18 06/02/18 06:10 06:10 12:15 WBC 20.0 H D RBC 4.59 Hgb 14.1 Hct 43.3 MCV 94.4 H D MCH 30.6 MCHC 32.5 L RDW 13.5 Plt Count 138 MPV 8.4 Neut % (Auto) 86.6 H Lymph % (Auto) 6.2 L [place] % (Auto) 6.4 Eos % (Auto) 0.3 Baso % (Auto) 0.5 Neut # (Auto) 17.3 H Lymph # (Auto) 1.2 [place] # (Auto) 1.3 H Eos # (Auto) 0.1 Baso # (Auto) 0.1 Sodium 140 Potassium 4.1 Chloride 106 Carbon Dioxide 23 Anion Gap 15 BUN 19 Creatinine 1.1 Est GFR ( Amer) > 60 Est GFR (Non-Af Amer) > 60 Random Glucose 89 Calcium 8.6 Total Bilirubin 1.7 H AST 20 ALT 20 L Alkaline Phosphatase 50 Troponin I 0.1310 H* 0.1510 H* Total Protein 6.9 Albumin 3.8 Globulin 3.1 Albumin/Globulin Ratio 1.2 Triglycerides 58 Cholesterol 134 LDL Cholesterol Direct 77 HDL Cholesterol 35 Prostate Specific Ag Vitamin B12 401 TSH 3rd Generation 2.29 06/03/18 06/03/18 04:55 04:55 WBC 10.7 RBC 4.36 L Hgb 13.7 Hct 41.0 MCV 94.0 MCH 31.5 H MCHC 33.5 RDW 13.7 Plt Count 117 L D MPV Neut % (Auto) Lymph % (Auto) [place] % (Auto) Eos % (Auto) Baso % (Auto) Neut # (Auto) Lymph # (Auto) [place] # (Auto) Eos # (Auto) Baso # (Auto) Sodium 136 Potassium 3.7 Chloride 103 Carbon Dioxide 23 Anion Gap 14 BUN 17 Creatinine 0.8 Est GFR ( Amer) > 60 Est GFR (Non-Af Amer) > 60 Random Glucose 104 Calcium 8.6 Total Bilirubin 1.1 AST 27 ALT 27 Alkaline Phosphatase 61 Troponin I Total Protein 6.6 Albumin 3.4 L Globulin 3.2 Albumin/Globulin Ratio 1.1 Triglycerides 70 D Cholesterol 132 LDL Cholesterol Direct 84 HDL Cholesterol 29 L Prostate Specific Ag 5.56 H Vitamin B12 TSH 3rd Generation Assessment & Plan (1) UTI (urinary tract infection) Status: Acute (2) Elevated blood pressure reading without diagnosis of hypertension Status: Acute (3) Sepsis Status: Acute (4) Atypical chest pain Status: Resolved - Assessment and Plan (Free Text) Assessment: 62 y/o M with NO pertinent PMHx was admitted for evaluation and management of sepsis, UTI and bacteremia. PLAN: >Sepsis due to UTI and bacteremia. --Still with fever episodes --Fever, tachycardia and abnormal urinalysis on presentation, meets criteria for sepsis. --Blood Cx showed gram neg rods. --ID on board, Dr Ramos --On IV Rocephin --Awaiting sensitivity studies on blood Cx. --Acetaminiophen for fever PRN >Chest Pain --Resolved --Cardiology on board. --Echocardiogram: LVEF 60-65%, normal systolic and diastolic functions. >Episodes of elevated BP --No Hx of HTN --Episodes occures when fever is present. --PO Clonidine x1 this morning. --Monitor vital signs >DVT Prophylaxis --SCD's --lovenox 40mg daily. Case discussed with Dr Radha Daniel PGY-2 <Santhosh Garcia - Last Filed: 06/07/18 15:10> Results - Vital Signs Recent Vital Signs: Last Vital Signs Temp 98.3 F 06/06/18 11:38 Pulse 84 06/06/18 11:38 Resp 18 06/06/18 11:38 BP 153/93 H 06/06/18 11:38 Pulse Ox 97 06/06/18 11:38 - Labs Result Diagrams: 06/06/18 04:25 06/06/18 04:25 Assessment & Plan - Assessment and Plan (Free Text) Assessment: Patient was personally seen and examined by me in rounds with residents. Available labs and diagnostic data reviewed. Case, Patient's condition and management plan discussed with residents in rounds. Agree with resident's progress note. Plan: As ordered.
[2018-06-03] MEDS: Enoxaparin 40 mg Syringe SC SCH (08:25)
[2018-06-03] MEDS: cefTRIAXone 2 GM in Sodium Chloride 0.9% 100 ML IVPB SCH (08:25)
--- NOTE | 2018-06-03 08:52 | CARD ---
APPROVED REPORT Date of service: 06/02/2018 EXAM: Two-dimensional and M-mode echocardiogram with Doppler and color Doppler. Other Information Quality : GoodRhythm : NSR INDICATION ICD: OLD IWMI 2D DIMENSIONS IVSd1.00 (0.7-1.1cm)LVDd5.32 (3.9-5.9cm) LVOT Diameter2.41 (1.8-2.4cm)PWd0.94 (0.7-1.1cm) IVSs1.17 (0.8-1.2cm)LVDs4.27 (2.5-4.0cm) FS (%) 19.8 %PWs1.06 (0.8-1.2cm) M-Mode DIMENSIONS Left Atrium (MM)4.82 (2.5-4.0cm)IVSd1.06 (0.7-1.1cm) Aortic Root3.21 (2.2-3.7cm)LVDd5.47 (4.0-5.6cm) Aortic Cusp Exc.2.18 (1.5-2.0cm)PWd1.06 (0.7-1.1cm) IVSs1.53 cmFS (%) 32 % LVDs3.71 (2.0-3.8cm)PWs1.38 cm Aortic Valve AoV Peak Liinugzn809.0cm/sAoV VTI23.9cmAO Peak GR.7mmHg LVOT Peak Qvbvndhx433.9cm/sLVOT VTI19.41cmAO Mean GR.4mmHg LAN (VMAX)1.10dh3VSY (VTI)1.82cm2 Mitral Valve MV E Bdrsuvzm89.4cm/sMV DECEL [id number] A Urouyzbz02.2cm/s MV NZF05tvO/A ratio1.2MVA (PHT)4.26cm2 TDI Lateral E' Peak V12.47cm/sMedial E' Peak V9.53cm/sE/Lateral E'7.4 E/Medial E'9.7 LEFT VENTRICLE The left ventricle is normal size. There is normal left ventricular wall thickness. Left ventricle systolic function is normal. LVEF is 60-65%. There is normal LV segmental wall motion. The left ventricular diastolic function is normal. RIGHT VENTRICLE The right ventricle is normal size. There is normal right ventricular wall thickness. The right ventricular systolic function is normal. ATRIA The left atrium size is normal. The right atrium size is normal. AORTIC VALVE The aortic valve is normal in structure. No aortic regurgitation is present. There is no aortic valvular stenosis. MITRAL VALVE The mitral valve is normal in structure. There is no evidence of mitral valve prolapse. There is no mitral valve stenosis. There is no mitral valve regurgitation noted. TRICUSPID VALVE The tricuspid valve is normal in structure. There is no tricuspid valve regurgitation noted. PULMONIC VALVE The pulmonary valve is normal in structure. There is no pulmonic valvular regurgitation. GREAT VESSELS The aortic root is normal in size. The IVC is dilated. PERICARDIAL EFFUSION The pericardium appears normal. <Conclusion> There is normal left ventricular wall thickness. There is normal LV segmental wall motion. Left ventricle systolic function is normal. LVEF is 60-65%. The left ventricular diastolic function is normal.
--- NOTE | 2018-06-03 10:40 | CP.PCM.PN ---
Subjective - Date & Time of Evaluation Date of Evaluation: 06/03/18 Time of Evaluation: 09:00 - Subjective Subjective: The patient was found resting comfortably in bed. His vital signs were stable and his telemetry demonstrated sinus rhythm with a heart rate within physiological range. Review of his echocardiogram shows normal left ventricular wall motion and preserved ejection fraction. I have reassured the patient regarding this finding and recommended that he should undergo a nuclear stress test when his sepsis issue have settled. His lipid panel appears quite satisfactory. Objective - Vital Signs/Intake and Output Vital Signs (last 24 hours): Temp Pulse Resp BP Pulse Ox 100.5 F H 85 18 169/103 H 97 06/03/18 08:24 06/03/18 09:10 06/03/18 07:48 06/03/18 09:10 06/03/18 07:48 - Medications Medications: Current Medications Acetaminophen (Tylenol 325mg Tab) 650 mg PO Q4 PRN PRN Reason: Fever >100.4 F Last Admin: 06/03/18 08:24 Dose: 650 mg Aspirin (Ecotrin) 81 mg PO DAILY [facility] Last Admin: 06/03/18 08:25 Dose: 81 mg Enoxaparin Sodium (Lovenox) 40 mg SC DAILY [facility]; Protocol Last Admin: 06/03/18 08:25 Dose: 40 mg Ceftriaxone Sodium 2 gm/ (Sodium Chloride) 100 mls @ 100 mls/hr IVPB DAILY [facility]; Protocol Last Admin: 06/03/18 08:25 Dose: 100 mls/hr - Labs Labs: 06/03/18 04:55 06/03/18 04:55 PT 14.6 Seconds (9.8-13.1) H 06/01/18 19:30 INR 1.2 06/01/18 19:30 APTT 26.6 Seconds (25.6-37.1) 06/01/18 19:30
--- NOTE | 2018-06-03 10:45 | CP.PCM.PN ---
Subjective - Date & Time of Evaluation Date of Evaluation: 06/03/18 Time of Evaluation: 08:00 - Subjective Subjective: 62 year old male with no past medical history is referred for ID eval of gram negative sepsis - source unclear but believed to be due to UTI Patient c/o sudden onset of fever and chills on the day of admission Denies respiratory GI or symptoms No travel No pets Blood c/s x 2- Gram neg rods On IV Rocephin Objective - Vital Signs/Intake and Output Vital Signs (last 24 hours): Temp Pulse Resp BP Pulse Ox 100.5 F H 85 18 169/103 H 97 06/03/18 08:24 06/03/18 09:10 06/03/18 07:48 06/03/18 09:10 06/03/18 07:48 - Medications Medications: Current Medications Acetaminophen (Tylenol 325mg Tab) 650 mg PO Q4 PRN PRN Reason: Fever >100.4 F Last Admin: 06/03/18 08:24 Dose: 650 mg Aspirin (Ecotrin) 81 mg PO DAILY [facility] Last Admin: 06/03/18 08:25 Dose: 81 mg Enoxaparin Sodium (Lovenox) 40 mg SC DAILY [facility]; Protocol Last Admin: 06/03/18 08:25 Dose: 40 mg Ceftriaxone Sodium 2 gm/ (Sodium Chloride) 100 mls @ 100 mls/hr IVPB DAILY [facility]; Protocol Last Admin: 06/03/18 08:25 Dose: 100 mls/hr - Labs Labs: 06/03/18 04:55 06/03/18 04:55 PT 14.6 Seconds (9.8-13.1) H 06/01/18 19:30 INR 1.2 06/01/18 19:30 APTT 26.6 Seconds (25.6-37.1) 06/01/18 19:30 - Constitutional Appears: Non-toxic, No Acute Distress, Chronically Ill - Head Exam Head Exam: ATRAUMATIC, NORMAL INSPECTION, NORMOCEPHALIC - Eye Exam Eye Exam: EOMI, Normal appearance, PERRL Pupil Exam: NORMAL ACCOMODATION, PERRL - ENT Exam ENT Exam: Mucous Membranes Moist, Normal Exam - Neck Exam Neck Exam: Full ROM, Normal Inspection. absent: Lymphadenopathy - Respiratory Exam Respiratory Exam: Clear to Ausculation Bilateral, NORMAL BREATHING PATTERN - Cardiovascular Exam Cardiovascular Exam: REGULAR RHYTHM, +S1, +S2. absent: Murmur - GI/Abdominal Exam GI & Abdominal Exam: Soft, Normal Bowel Sounds. absent: Tenderness - Rectal Exam Rectal Exam: Deferred - Exam Exam: NORMAL INSPECTION - Extremities Exam Extremities Exam: Full ROM, Normal Capillary Refill, Normal Inspection. absent: Joint Swelling, Pedal Edema - Back Exam Back Exam: NORMAL INSPECTION - Neurological Exam Neurological Exam: Alert, Awake, CN II-XII Intact, Normal Gait, Oriented x3 - Psychiatric Exam Psychiatric exam: Normal Affect, Normal Mood - Skin Skin Exam: Dry, Intact, Normal Color, Warm Assessment and Plan (1) Bacteremia due to Gram-negative bacteria Status: Acute (2) Sepsis Status: Acute (3) UTI (urinary tract infection) Status: Acute - Assessment and Plan (Free Text) Assessment: await ID and sensitivity 'recc: CT abd /pelvis r/o prostatic abscess
--- NOTE | 2018-06-03 13:05 | CP.PCM.PN ---
<Cameron Daniel - Last Filed: 06/03/18 13:03> Subjective - Date & Time of Evaluation Date of Evaluation: 06/03/18 Time of Evaluation: 06:50 - Subjective Subjective: 62 y/o M was seen and examined by bedside with Dr Garcia, pt reported feeling well, c/o of generalized weakness only. Pt tolerating PO, had a fever of 101.1 F overnight. Pt denies chills, dizziness, chest pain, SOB, palpitations, N/V/D, dysuria or hermaturia. Objective - Vital Signs/Intake and Output Vital Signs (last 24 hours): Temp Pulse Resp BP Pulse Ox 98.8 F 85 18 169/103 H 97 06/03/18 09:24 06/03/18 09:10 06/03/18 07:48 06/03/18 09:10 06/03/18 07:48 - Medications Medications: Current Medications Acetaminophen (Tylenol 325mg Tab) 650 mg PO Q4 PRN PRN Reason: Fever >100.4 F Last Admin: 06/03/18 08:24 Dose: 650 mg Aspirin (Ecotrin) 81 mg PO DAILY [facility] Last Admin: 06/03/18 08:25 Dose: 81 mg Enoxaparin Sodium (Lovenox) 40 mg SC DAILY [facility]; Protocol Last Admin: 06/03/18 08:25 Dose: 40 mg Ceftriaxone Sodium 2 gm/ (Sodium Chloride) 100 mls @ 100 mls/hr IVPB DAILY [facility]; Protocol Last Admin: 06/03/18 08:25 Dose: 100 mls/hr - Labs Labs: 06/03/18 04:55 06/03/18 04:55 PT 14.6 Seconds (9.8-13.1) H 06/01/18 19:30 INR 1.2 06/01/18 19:30 APTT 26.6 Seconds (25.6-37.1) 06/01/18 19:30 - Additional Findings Additional findings: - Constitutional Appears: Well, No Acute Distress - Head Exam Head Exam: ATRAUMATIC, NORMAL INSPECTION - Eye Exam Eye Exam: EOMI - ENT Exam ENT Exam: Mucous Membranes Moist - Neck Exam Neck exam: Positive for: Full Rom, Normal Inspection. Negative for: Meningismus - Respiratory Exam Respiratory Exam: Clear to Auscultation Bilateral, NORMAL BREATHING PATTERN - Cardiovascular Exam Cardiovascular Exam: REGULAR RHYTHM, +S1, +S2 - GI/Abdominal Exam GI & Abdominal Exam: Soft. absent: Distended, Guarding, Rebound, Rigid, Tenderness - Extremities Exam Extremities exam: Positive for: full ROM. Negative for: calf tenderness, pedal edema - Back Exam Back exam: absent: CVA tenderness (L), CVA tenderness (R) - Neurological Exam Neurological exam: Alert, Oriented x3 Assessment and Plan (1) UTI (urinary tract infection) Status: Acute (2) Elevated blood pressure reading without diagnosis of hypertension Status: Acute (3) Sepsis Status: Acute (4) Atypical chest pain Status: Resolved - Assessment and Plan (Free Text) Assessment: 62 y/o M with NO pertinent PMHx was admitted for evaluation and management of sepsis, UTI and bacteremia. PLAN: >Sepsis due to UTI and bacteremia. --Still with fever episodes --Fever, tachycardia and abnormal urinalysis on presentation, meets criteria for sepsis. --Blood Cx showed gram neg rods. --ID on board, Dr Ramos --On IV Rocephin --Awaiting sensitivity studies on blood Cx. --Acetaminiophen for fever PRN >Chest Pain --Resolved --Cardiology on board. --Echocardiogram: LVEF 60-65%, normal systolic and diastolic functions. >Episodes of elevated BP --No Hx of HTN --Episodes occures when fever is present. --PO Clonidine x1 this morning. --Monitor vital signs >DVT Prophylaxis --SCD's --lovenox 40mg daily. Case discussed with Dr Radha Daniel PGY-2 <Santhosh Garcia - Last Filed: 06/07/18 15:13> Objective - Vital Signs/Intake and Output Vital Signs (last 24 hours): Temp Pulse Resp BP Pulse Ox 98.3 F 84 18 153/93 H 97 06/06/18 11:38 06/06/18 11:38 06/06/18 11:38 06/06/18 11:38 06/06/18 11:38 - Labs Labs: 06/06/18 04:25 06/06/18 04:25 PT 14.6 Seconds (9.8-13.1) H 06/01/18 19:30 INR 1.2 06/01/18 19:30 APTT 26.6 Seconds (25.6-37.1) 06/01/18 19:30 Assessment and Plan - Assessment and Plan (Free Text) Assessment: Patient was personally seen and examined by me in rounds with residents. Available labs and diagnostic data reviewed. Case, Patient's condition and management plan discussed with residents in rounds. Agree with resident's progress note. Plan: As ordered.
[2018-06-04] MEDS ORDERED: Influenza Vaccine (5 YR UP)/PF 60 MCG/0.5 ML SYR IM ONE (04:02)
[2018-06-04 05:52] LABS: HEMOGLOBIN 13.5 g/dL (12.0-18.0); MEAN CELL VOLUME 93.8 fl (80.0-94.0); MEAN CORPUSCULAR HEMOGLOBIN 31.3 pg (27.0-31.0); MEAN CORPUSCULAR HGB CONC 33.4 g/dL (33.0-37.0); RBC 4.3 Mil/uL (4.40-5.90); RED CELL DISTRIBUTION WIDTH 13.5 % (11.5-14.5); WHITE BLOOD COUNT 7.6 K/uL (4.8-10.8)
[2018-06-04 05:55] LABS: BLOOD UREA NITROGEN 15 mg/dl (9-20); CALCIUM 8.8 mg/dL (8.4-10.2); GFR NON-AFRICAN AMERICAN > 60
[2018-06-04] MEDS ORDERED: Influenza Vaccine 60 mcg/0.5 mL SYR (4YR UP) IM ONE (06:00)
[2018-06-04] MEDS ORDERED: Pneumococcal 23-Valent Vaccine IM ONE (06:00)
[2018-06-04] MEDS ORDERED: Iohexol 240 (50 ml) PO ONE (07:09)
--- NOTE | 2018-06-04 09:05 | CP.PCM.PN ---
<Cameron Daniel - Last Filed: 06/04/18 09:51> Subjective - Date & Time of Evaluation Date of Evaluation: 06/04/18 Time of Evaluation: 07:20 - Subjective Subjective: 62 y/o M was seen and examined by bedside with Dr Garcia. Pt reports feeling well, tolerating PO. Pt had fever overnight and BP was elevated through the day. Pt re ports NO Hx of HTN and not being in pain. Pt denies chest pain, SOB, urinary difficulties or rash. Objective - Vital Signs/Intake and Output Vital Signs (last 24 hours): Temp Pulse Resp BP Pulse Ox 98.1 F 90 18 164/100 H 96 06/04/18 07:53 06/04/18 07:53 06/04/18 07:53 06/04/18 07:53 06/04/18 07:53 - Medications Medications: Current Medications Acetaminophen (Tylenol 325mg Tab) 650 mg PO Q4 PRN PRN Reason: Fever >100.4 F Last Admin: 06/03/18 23:52 Dose: 650 mg Amlodipine Besylate (Norvasc) 5 mg PO DAILY [facility] Aspirin (Ecotrin) 81 mg PO DAILY [facility] Last Admin: 06/03/18 08:25 Dose: 81 mg Enoxaparin Sodium (Lovenox) 40 mg SC DAILY [facility]; Protocol Last Admin: 06/03/18 08:25 Dose: 40 mg Ceftriaxone Sodium 2 gm/ (Sodium Chloride) 100 mls @ 100 mls/hr IVPB DAILY [facility]; Protocol Last Admin: 06/03/18 08:25 Dose: 100 mls/hr - Labs Labs: 06/04/18 05:00 06/04/18 05:00 PT 14.6 Seconds (9.8-13.1) H 06/01/18 19:30 INR 1.2 06/01/18 19:30 APTT 26.6 Seconds (25.6-37.1) 06/01/18 19:30 - Additional Findings Additional findings: - Constitutional Appears: Well, No Acute Distress - Head Exam Head Exam: ATRAUMATIC, NORMAL INSPECTION - Eye Exam Eye Exam: EOMI - ENT Exam ENT Exam: Mucous Membranes Moist - Neck Exam Neck exam: Positive for: Full Rom, Normal Inspection. Negative for: Meningismus - Respiratory Exam Respiratory Exam: Clear to Auscultation Bilateral, NORMAL BREATHING PATTERN - Cardiovascular Exam Cardiovascular Exam: REGULAR RHYTHM, +S1, +S2 - GI/Abdominal Exam GI & Abdominal Exam: Soft. absent: Distended, Guarding, Rebound, Rigid, Tenderness - Extremities Exam Extremities exam: Positive for: full ROM. Negative for: calf tenderness, pedal edema - Back Exam Back exam: absent: CVA tenderness (L), CVA tenderness (R) - Neurological Exam Neurological exam: Alert, Oriented x3 Assessment and Plan (1) UTI (urinary tract infection) Status: Acute (2) Elevated blood pressure reading without diagnosis of hypertension Status: Acute (3) Sepsis Status: Acute (4) Atypical chest pain Status: Resolved - Assessment and Plan (Free Text) Assessment: 62 y/o M with NO pertinent PMHx was admitted for evaluation and management of sepsis, UTI and bacteremia. PLAN: >Sepsis due to UTI and bacteremia. --Still with fever episodes --Blood Cx and Urine Cx showed Klebsiella Pneumo. (Sensitive to Rocephin) --ID on board, Dr Ramos --On IV Rocephin --Acetaminiophen for fever PRN --Serum PSA slightly elevated-possibly infectious prostatitis. --CT Abdomen and pelvis for evaluation of abscess/prostatitis was ordered. >Episodes of elevated BP --No Hx of HTN --PO Amlodipine 5mg daily, initiated --Monitor vital signs >DVT Prophylaxis --SCD's --lovenox 40mg daily. Case discussed with Dr Radha Daniel PGY-2 <Santhosh Garcia - Last Filed: 06/07/18 15:14> Objective - Vital Signs/Intake and Output Vital Signs (last 24 hours): Temp Pulse Resp BP Pulse Ox 98.3 F 84 18 153/93 H 97 06/06/18 11:38 06/06/18 11:38 06/06/18 11:38 06/06/18 11:38 06/06/18 11:38 - Labs Labs: 06/06/18 04:25 06/06/18 04:25 PT 14.6 Seconds (9.8-13.1) H 06/01/18 19:30 INR 1.2 06/01/18 19:30 APTT 26.6 Seconds (25.6-37.1) 06/01/18 19:30 Assessment and Plan - Assessment and Plan (Free Text) Assessment: Patient was personally seen and examined by me in rounds with residents. Available labs and diagnostic data reviewed. Case, Patient's condition and management plan discussed with residents in rounds. Agree with resident's progress note. Plan: As ordered.
[2018-06-04] MEDS: cefTRIAXone 2 GM in Sodium Chloride 0.9% 100 ML IVPB SCH (09:20)
[2018-06-04] MEDS: Enoxaparin 40 mg Syringe SC SCH (09:20)
[2018-06-04] MEDS ORDERED: Sodium Chloride 0.9% 50 ML IV ONE (12:19)
[2018-06-04] MEDS ORDERED: Iohexol 300 100 ML IJ ONE (12:19)
--- NOTE | 2018-06-04 13:23 | CP.PCM.PN ---
Subjective - Date & Time of Evaluation Date of Evaluation: 06/04/18 Time of Evaluation: 08:00 - Subjective Subjective: less fever no pain CT pending Objective - Vital Signs/Intake and Output Vital Signs (last 24 hours): Temp Pulse Resp BP Pulse Ox 99.4 F 79 18 151/102 H 97 06/04/18 11:58 06/04/18 11:58 06/04/18 11:58 06/04/18 11:58 06/04/18 11:58 - Medications Medications: Current Medications Acetaminophen (Tylenol 325mg Tab) 650 mg PO Q4 PRN PRN Reason: Fever >100.4 F Last Admin: 06/03/18 23:52 Dose: 650 mg Amlodipine Besylate (Norvasc) 5 mg PO DAILY [facility] Last Admin: 06/04/18 09:19 Dose: 5 mg Aspirin (Ecotrin) 81 mg PO DAILY [facility] Last Admin: 06/04/18 09:20 Dose: 81 mg Enoxaparin Sodium (Lovenox) 40 mg SC DAILY [facility]; Protocol Last Admin: 06/04/18 09:20 Dose: 40 mg Ceftriaxone Sodium 2 gm/ (Sodium Chloride) 100 mls @ 100 mls/hr IVPB DAILY [facility]; Protocol Last Admin: 06/04/18 09:20 Dose: 100 mls/hr - Labs Labs: 06/04/18 05:00 06/04/18 05:00 PT 14.6 Seconds (9.8-13.1) H 06/01/18 19:30 INR 1.2 06/01/18 19:30 APTT 26.6 Seconds (25.6-37.1) 06/01/18 19:30 - Constitutional Appears: Non-toxic, No Acute Distress, Chronically Ill - Head Exam Head Exam: ATRAUMATIC, NORMAL INSPECTION, NORMOCEPHALIC - Eye Exam Eye Exam: EOMI, Normal appearance, PERRL Pupil Exam: NORMAL ACCOMODATION, PERRL - ENT Exam ENT Exam: Mucous Membranes Moist, Normal Exam - Neck Exam Neck Exam: Full ROM, Normal Inspection. absent: Lymphadenopathy - Respiratory Exam Respiratory Exam: Clear to Ausculation Bilateral, NORMAL BREATHING PATTERN - Cardiovascular Exam Cardiovascular Exam: REGULAR RHYTHM, +S1, +S2. absent: Murmur - GI/Abdominal Exam GI & Abdominal Exam: Soft, Normal Bowel Sounds. absent: Tenderness - Rectal Exam Rectal Exam: Deferred - Exam Exam: NORMAL INSPECTION - Extremities Exam Extremities Exam: Full ROM, Normal Capillary Refill, Normal Inspection. absent: Joint Swelling, Pedal Edema - Back Exam Back Exam: NORMAL INSPECTION - Neurological Exam Neurological Exam: Alert, Awake, CN II-XII Intact, Normal Gait, Oriented x3 - Psychiatric Exam Psychiatric exam: Normal Affect, Normal Mood - Skin Skin Exam: Dry, Intact, Normal Color, Warm Assessment and Plan (1) Bacteremia due to Gram-negative bacteria Status: Acute (2) Sepsis Status: Acute (3) UTI (urinary tract infection) Status: Acute - Assessment and Plan (Free Text) Assessment: Klebsiella in blood and urine suggests source CT pending r/o Prostatitis / abscess consider eval repeat blood cultures sent
--- NOTE | 2018-06-04 13:49 | CT ---
Date of service: 06/04/2018 PROCEDURE: CT Abdomen and Pelvis with contrast HISTORY: Bacteremia, UTI. R/O abscess. COMPARISON: None. TECHNIQUE: Contrast dose: 95 mL Omnipaque 300 Radiation dose: Total exam DLP = 654.55 mGy-cm. This CT exam was performed using one or more of the following dose reduction techniques: Automated exposure control, adjustment of the mA and/or kV according to patient size, and/or use of iterative reconstruction technique. FINDINGS: LOWER THORAX: Trace posterior thickening. Bi basilar posterior subpleural sub cm ground-glass like nodular opacities may be inflammatory-noted axis series 5, image 9 and 10 those on the left appear more confluent more subpleural hypoventilatory atelectatic like. Or solid-appearing nodule right lower lobe posterior measuring approximately 4 mm. Right posteromedial linear scarring and/or linear subsegmental atelectasis. Trace right subpleural subsegmental consolidation here also present. LIVER: Diffuse fatty infiltration suspect. No gross lesion or ductal dilatation. GALLBLADDER AND BILE DUCTS: Unremarkable. PANCREAS: Unremarkable. No gross lesion or ductal dilatation. SPLEEN: Unremarkable. ADRENALS: Unremarkable. No mass. KIDNEYS AND URETERS: A sub cm equivocal hypodensity. Left lower renal pole cortical medullary junction opens is axis series 2, image 44 and coronal series 601, image 70. Is bili too small to accurately characterize. Consider renal ultrasound targeted to this area may aid in its characterisation. Similar 7 mm hypodensity more discrete in the anterior right renal mid pole cortex Minimal intrarenal fullness to both kidneys. No peripheral caliectasis seen. VASCULATURE: No aortic aneurysm. There is presence of aortic atherosclerotic calcification and mural plaque on cross sectional studies. BOWEL: Moderate stool retention. Redundant rectosigmoid colon.. No obstruction. No gross mural thickening. APPENDIX: Unremarkable. PERITONEUM: Unremarkable. No free fluid. No free air. LYMPH NODES: Unremarkable. No enlarged lymph nodes. BLADDER: Unremarkable. REPRODUCTIVE: Enlarged prostate estimated to be 5.4 x 4.7 cm. Coarse prostatic calcifications present. Seminal vesicles fairly symmetrical and otherwise unremarkable. Moderately distended bladder. No bladder wall gross thickening seen. No gross bladder intraluminal masses. BONES: No acute fracture. Mild diffuse anterior spondylosis. OTHER FINDINGS: Left groin fat containing hernia. No bowel containing hernia seen. IMPRESSION: Sub cm renal hypodensities that on the left in the lower renal pole is more equivocal in its true presence. The findings are too small accurately characterize. Consider renal ultrasound targeted to the mid right renal pole and left lower renal pole evaluation. Minimal intrarenal fullness of the collecting system. No more peripheral caliectasis to suggest hydronephrosis. No gross abscesses appreciated. No gross urolithiasis noted. Hepatic steatosis. Moderate stool retention with redundancy. No bowel obstruction seen. Enlargement with prostatic calcifications. Moderate bladder distension no bladder wall thickening or intraluminal bladder pathology apparent. Bibasilar dependent wall thickening and sub pleural ectatic changes-mainly in the left with nonspecific sub cm mostly ground-glass opacities at the right lung base. Small approximately 4 mm solid-appearing nodule right lower lobe nonspecific in its appearance. Other findings as above.
[2018-06-05 05:21] LABS: MEAN CELL VOLUME 93.5 fl (80.0-94.0); MEAN CORPUSCULAR HEMOGLOBIN 31.6 pg (27.0-31.0); MEAN CORPUSCULAR HGB CONC 33.9 g/dL (33.0-37.0); RBC 4.11 Mil/uL (4.40-5.90); RED CELL DISTRIBUTION WIDTH 13.3 % (11.5-14.5); WHITE BLOOD COUNT 6.9 K/uL (4.8-10.8)
[2018-06-05 05:37] LABS: BLOOD UREA NITROGEN 13 mg/dl (9-20); CALCIUM 8.7 mg/dL (8.4-10.2); GFR NON-AFRICAN AMERICAN > 60
--- NOTE | 2018-06-05 07:41 | CP.PCM.PN ---
<Cameron Daniel - Last Filed: 06/05/18 09:20> Subjective - Date & Time of Evaluation Date of Evaluation: 06/05/18 Time of Evaluation: 07:00 - Subjective Subjective: 62 y/o M was seen and examined by bedside with Dr Garcia. Pt reports feeling well, tolerating PO. Pt afebrile with No acute events overnight. BP remained elevated after amlodipine given, Clonidine was administered last afternoon with stabilization of BP. Pt denies chest pain, SOB, urinary difficulties or rash. Objective - Vital Signs/Intake and Output Vital Signs (last 24 hours): Temp Pulse Resp BP Pulse Ox 98.6 F 63 18 125/79 97 06/05/18 04:33 06/05/18 04:33 06/05/18 04:33 06/05/18 04:33 06/05/18 04:33 - Medications Medications: Current Medications Acetaminophen (Tylenol 325mg Tab) 650 mg PO Q4 PRN PRN Reason: Fever >100.4 F Last Admin: 06/03/18 23:52 Dose: 650 mg Amlodipine Besylate (Norvasc) 10 mg PO DAILY [facility] Aspirin (Ecotrin) 81 mg PO DAILY [facility] Last Admin: 06/04/18 09:20 Dose: 81 mg Enoxaparin Sodium (Lovenox) 40 mg SC DAILY [facility]; Protocol Last Admin: 06/04/18 09:20 Dose: 40 mg Ceftriaxone Sodium 2 gm/ (Sodium Chloride) 100 mls @ 100 mls/hr IVPB DAILY [facility]; Protocol Last Admin: 06/04/18 09:20 Dose: 100 mls/hr - Labs Labs: 06/05/18 05:10 06/05/18 05:10 PT 14.6 Seconds (9.8-13.1) H 06/01/18 19:30 INR 1.2 06/01/18 19:30 APTT 26.6 Seconds (25.6-37.1) 06/01/18 19:30 - Additional Findings Additional findings: - Constitutional Appears: Well, No Acute Distress - Head Exam Head Exam: ATRAUMATIC, NORMAL INSPECTION - Eye Exam Eye Exam: EOMI - ENT Exam ENT Exam: Mucous Membranes Moist - Neck Exam Neck exam: Positive for: Full Rom, Normal Inspection. Negative for: Meningismus - Respiratory Exam Respiratory Exam: Clear to Auscultation Bilateral, NORMAL BREATHING PATTERN - Cardiovascular Exam Cardiovascular Exam: REGULAR RHYTHM, +S1, +S2 - GI/Abdominal Exam GI & Abdominal Exam: Soft. absent: Distended, Guarding, Rebound, Rigid, Tenderness - Extremities Exam Extremities exam: Positive for: full ROM. Negative for: calf tenderness, pedal edema - Back Exam Back exam: absent: CVA tenderness (L), CVA tenderness (R) - Neurological Exam Neurological exam: Alert, Oriented x3 Assessment and Plan (1) UTI (urinary tract infection) Status: Acute (2) Elevated blood pressure reading without diagnosis of hypertension Status: Acute (3) Sepsis Status: Acute (4) Atypical chest pain Status: Resolved - Assessment and Plan (Free Text) Assessment: 62 y/o M with NO pertinent PMHx was admitted for evaluation and management of sepsis, UTI and bacteremia. PLAN: >Sepsis due to UTI and bacteremia. --Still with fever episodes --Blood Cx and Urine Cx showed Klebsiella Pneumo. (Sensitive to Rocephin) --ID on board, Dr Ramos --On IV Rocephin --Acetaminiophen for fever PRN --Serum PSA slightly elevated-possibly infectious prostatitis. --CT Abdomen and pelvis: enlarged prostate with calcifications, renal hypodensities, b/l lower lung lobes opacities. >Prostatomegaly --Possibly prostatitis --Serum PSA slighlty elevated --Abnormal CT findings: enlarged prostate with calcifications. --Urology consult, Dr Mccray. >Renal hypodensities --CT Abdomen and pelvis: Renal hypodensities. --Renal sonogram ordered for further details. --F/U US Renal results. >B/L Lower Lung Lobes Opacities. --Never smoker, asymptomatic. --Pt made aware of findings, recommended to repeat CT Chest in a few months. >Hypertension --No Hx of HTN --PO Amlodipine dose increased to 10mg PO daily. --Monitor vital signs >DVT Prophylaxis --SCD's --lovenox 40mg daily. Case discussed with Dr Radha Daniel PGY-2 <Santhosh Garcia - Last Filed: 06/07/18 15:15> Objective - Vital Signs/Intake and Output Vital Signs (last 24 hours): Temp Pulse Resp BP Pulse Ox 98.3 F 84 18 153/93 H 97 06/06/18 11:38 06/06/18 11:38 06/06/18 11:38 06/06/18 11:38 06/06/18 11:38 - Labs Labs: 06/06/18 04:25 06/06/18 04:25 PT 14.6 Seconds (9.8-13.1) H 06/01/18 19:30 INR 1.2 06/01/18 19:30 APTT 26.6 Seconds (25.6-37.1) 06/01/18 19:30 Assessment and Plan - Assessment and Plan (Free Text) Assessment: Patient was personally seen and examined by me in rounds with residents. Available labs and diagnostic data reviewed. Case, Patient's condition and management plan discussed with residents in rounds. Agree with resident's progress note. Plan: As ordered.
[2018-06-05] MEDS: cefTRIAXone 2 GM in Sodium Chloride 0.9% 100 ML IVPB SCH (09:51)
[2018-06-05] MEDS: Enoxaparin 40 mg Syringe SC SCH (09:53)
--- NOTE | 2018-06-05 12:03 | US ---
Date of service: 06/05/2018 PROCEDURE: Ultrasound of the Kidneys HISTORY: Renal hypodensities on recent CT. COMPARISON: CT abdomen and pelvis from 06/04/2018. TECHNIQUE: Grayscale imaging was performed. FINDINGS: RIGHT KIDNEY: Measures: 12.3 cm. Normal in size, contour and echogenicity. No stone, solid mass lesion or hydronephrosis visualized. There is a 1.1 x 1.0 x 0.6 cm nonshadowing echogenic focus in the interpolar region. LEFT KIDNEY: Measures: 13.2 cm. Normal in size, contour and echogenicity. No stone, solid mass lesion or hydronephrosis visualized. There is a 0.8 x 0.9 x 0.6 cm nonshadowing echogenic focus in the lower pole. OTHER FINDINGS: None. IMPRESSION: No hydronephrosis. Solitary nonshadowing echogenic foci in the right interpolar region and left lower pole could represent prominent renal sinus fat or non shadowing calcifications.
--- NOTE | 2018-06-05 17:41 | CP.PCM.PN ---
Subjective - Date & Time of Evaluation Date of Evaluation: 06/05/18 Time of Evaluation: 07:00 - Subjective Subjective: seen on rounds feeling much better denies fever / dysuria Objective - Vital Signs/Intake and Output Vital Signs (last 24 hours): Temp Pulse Resp BP Pulse Ox 98.7 F 74 16 133/87 97 06/05/18 16:05 06/05/18 16:05 06/05/18 16:05 06/05/18 16:05 06/05/18 16:05 - Medications Medications: Current Medications Acetaminophen (Tylenol 325mg Tab) 650 mg PO Q4 PRN PRN Reason: Fever >100.4 F Last Admin: 06/03/18 23:52 Dose: 650 mg Amlodipine Besylate (Norvasc) 10 mg PO DAILY [facility] Last Admin: 06/05/18 11:28 Dose: 10 mg Aspirin (Ecotrin) 81 mg PO DAILY [facility] Last Admin: 06/05/18 09:51 Dose: 81 mg Enoxaparin Sodium (Lovenox) 40 mg SC DAILY [facility]; Protocol Last Admin: 06/05/18 09:53 Dose: 40 mg Ceftriaxone Sodium 2 gm/ (Sodium Chloride) 100 mls @ 100 mls/hr IVPB DAILY [facility]; Protocol Last Admin: 06/05/18 09:51 Dose: 100 mls/hr - Labs Labs: 06/05/18 05:10 06/05/18 05:10 PT 14.6 Seconds (9.8-13.1) H 06/01/18 19:30 INR 1.2 06/01/18 19:30 APTT 26.6 Seconds (25.6-37.1) 06/01/18 19:30 - Constitutional Appears: Non-toxic, No Acute Distress, Chronically Ill - Head Exam Head Exam: ATRAUMATIC, NORMAL INSPECTION, NORMOCEPHALIC - Eye Exam Eye Exam: EOMI, Normal appearance, PERRL. absent: Scleral icterus Pupil Exam: NORMAL ACCOMODATION, PERRL - ENT Exam ENT Exam: Mucous Membranes Moist, Normal Exam - Neck Exam Neck Exam: Full ROM, Normal Inspection. absent: Lymphadenopathy - Respiratory Exam Respiratory Exam: Clear to Ausculation Bilateral, NORMAL BREATHING PATTERN - Cardiovascular Exam Cardiovascular Exam: REGULAR RHYTHM, +S1, +S2. absent: Murmur - GI/Abdominal Exam GI & Abdominal Exam: Soft, Normal Bowel Sounds. absent: Tenderness - Rectal Exam Rectal Exam: Deferred - Exam Exam: NORMAL INSPECTION - Extremities Exam Extremities Exam: Full ROM, Normal Capillary Refill, Normal Inspection. absent: Joint Swelling, Pedal Edema - Back Exam Back Exam: NORMAL INSPECTION - Neurological Exam Neurological Exam: Alert, Awake, CN II-XII Intact, Normal Gait, Oriented x3 - Psychiatric Exam Psychiatric exam: Normal Affect, Normal Mood - Skin Skin Exam: Dry, Intact, Normal Color, Warm Assessment and Plan (1) Bacteremia due to Gram-negative bacteria Status: Acute (2) Sepsis Status: Acute (3) UTI (urinary tract infection) Status: Acute (4) Bacteremia due to Klebsiella pneumoniae Status: Acute - Assessment and Plan (Free Text) Assessment: s/p UTI/ bacteremia/ sepsis will need evaluation for elevated PSA , UTI / Sepsis as out patient Possible d/c on PO Cipro or Levaquin for 14 days ( risks inclusing tendon rupture and aortic aneurysm s=discussed )
[2018-06-06 05:01] VITALS: RESP 18
[2018-06-06 05:21] LABS: HEMOGLOBIN 13.9 g/dL (12.0-18.0); MEAN CELL VOLUME 92.7 fl (80.0-94.0); MEAN CORPUSCULAR HEMOGLOBIN 31.1 pg (27.0-31.0); MEAN CORPUSCULAR HGB CONC 33.6 g/dL (33.0-37.0); RBC 4.48 Mil/uL (4.40-5.90); RED CELL DISTRIBUTION WIDTH 13.1 % (11.5-14.5)
[2018-06-06 05:30] LABS: BLOOD UREA NITROGEN 14 mg/dl (9-20); CALCIUM 8.7 mg/dL (8.4-10.2); GFR NON-AFRICAN AMERICAN > 60
[2018-06-06] MEDS: Enoxaparin 40 mg Syringe SC SCH (09:29)
[2018-06-06] MEDS: cefTRIAXone 2 GM in Sodium Chloride 0.9% 100 ML IVPB SCH (09:30)
[2018-06-06 11:39] VITALS: BP 153/93; PULSE 84; TEMP 98.3; O2SAT 97
[2018-06-06] MEDS ORDERED: Chlorhexidine Gluconate 1 APPL/PKT TP ONE (12:17)
--- NOTE | 2018-06-06 12:17 | CP.PCM.PN ---
Subjective - Date & Time of Evaluation Date of Evaluation: 06/06/18 Time of Evaluation: 08:00 - Subjective Subjective: improving denies fever or any pain awake / alert Objective - Vital Signs/Intake and Output Vital Signs (last 24 hours): Temp Pulse Resp BP Pulse Ox 98.3 F 84 18 153/93 H 97 06/06/18 11:38 06/06/18 11:38 06/06/18 11:38 06/06/18 11:38 06/06/18 11:38 - Medications Medications: Current Medications Acetaminophen (Tylenol 325mg Tab) 650 mg PO Q4 PRN PRN Reason: Fever >100.4 F Last Admin: 06/03/18 23:52 Dose: 650 mg Amlodipine Besylate (Norvasc) 10 mg PO DAILY [facility] Last Admin: 06/06/18 09:29 Dose: 10 mg Aspirin (Ecotrin) 81 mg PO DAILY [facility] Last Admin: 06/06/18 09:28 Dose: 81 mg Enoxaparin Sodium (Lovenox) 40 mg SC DAILY [facility]; Protocol Last Admin: 06/06/18 09:29 Dose: 40 mg Ceftriaxone Sodium 2 gm/ (Sodium Chloride) 100 mls @ 100 mls/hr IVPB DAILY [facility]; Protocol Last Admin: 06/06/18 09:30 Dose: 100 mls/hr - Labs Labs: 06/06/18 04:25 06/06/18 04:25 PT 14.6 Seconds (9.8-13.1) H 06/01/18 19:30 INR 1.2 06/01/18 19:30 APTT 26.6 Seconds (25.6-37.1) 06/01/18 19:30 - Constitutional Appears: Non-toxic, Chronically Ill - Head Exam Head Exam: NORMOCEPHALIC - Eye Exam Eye Exam: absent: Scleral icterus - ENT Exam ENT Exam: Mucous Membranes Dry - Neck Exam Neck Exam: absent: Lymphadenopathy - Respiratory Exam Respiratory Exam: Decreased Breath Sounds, Clear to Ausculation Bilateral - Cardiovascular Exam Cardiovascular Exam: REGULAR RHYTHM, +S1, +S2 - GI/Abdominal Exam GI & Abdominal Exam: Distended, Soft. absent: Tenderness - Rectal Exam Rectal Exam: Deferred - Exam Exam: NORMAL INSPECTION - Extremities Exam Extremities Exam: absent: Pedal Edema - Back Exam Back Exam: absent: CVA tenderness (L), CVA tenderness (R) - Neurological Exam Neurological Exam: Alert, Awake, CN II-XII Intact, Normal Gait, Oriented x3 Neuro motor strength exam: Left Upper Extremity: 5, Right Upper Extremity: 5, Left Lower Extremity: 5, Right Lower Extremity: 5 - Psychiatric Exam Psychiatric exam: Normal Mood - Skin Skin Exam: Dry Assessment and Plan (1) Bacteremia due to Gram-negative bacteria Status: Acute (2) Sepsis Status: Acute (3) UTI (urinary tract infection) Status: Acute (4) Bacteremia due to Klebsiella pneumoniae Status: Acute - Assessment and Plan (Free Text) Assessment: d/c on PO quinolone if cleared by needs minimum 14 more days need for follow up stressed to patient
--- NOTE | 2018-06-06 13:30 | CP.PCM.DIS ---
Provider - Provider Date of Admission: 06/02/18 15:45 Attending physician: Santhosh Garcia MD Primary care physician: None Consults: 06/02/18 09:09 Cardiology Consult Routine Comment: Consulting Provider: Kang Javier V Consulting Physician: Kang Javier V Reason for Consult: chest pressure,troponin 06/02/18 11:32 Infectious Disease Consult Routine Comment: Consulting Provider: Leon Ramos Consulting Physician: Leon Ramos Reason for Consult: uti 06/05/18 07:35 Urology Consult Routine Comment: Consulting Provider: Mateus Mccray Consulting Physician: Mateus Mccray Reason for Consult: Prostatitis,?prostate calcifications Time Spent in preparation of Discharge (in minutes): 30 Diagnosis - Discharge Diagnosis (1) UTI (urinary tract infection) Status: Acute (2) Elevated blood pressure reading without diagnosis of hypertension Status: Acute (3) Sepsis Status: Resolved (4) Atypical chest pain Status: Resolved Hospital Course - Lab Results Lab Results: Micro Results 06/04/18 20:18 Stool Stool Culture - Preliminary No growth. 06/04/18 05:00 Blood-Venous Blood Culture - Preliminary NO GROWTH AFTER 48 HOURS 06/04/18 05:05 Blood-Venous Blood Culture - Preliminary NO GROWTH AFTER 48 HOURS 06/01/18 19:42 Urine,Clean Catch Urine Culture - Final Klebsiella Pneumoniae Ssp Pneu 06/01/18 19:30 Blood Blood Culture - Final Klebsiella Pneumoniae Ssp Pneu 06/01/18 19:30 Blood Gram Stain - Final 06/01/18 19:45 Blood Blood Culture - Final Klebsiella Pneumoniae Ssp Pneu 06/01/18 19:45 Blood Gram Stain - Final Most Recent Lab Values WBC 7.0 K/uL (4.8-10.8) 06/06/18 04:25 RBC 4.48 Mil/uL (4.40-5.90) 06/06/18 04:25 Hgb 13.9 g/dL (12.0-18.0) 06/06/18 04:25 Hct 41.5 % (35.0-51.0) 06/06/18 04:25 MCV 92.7 fl (80.0-94.0) 06/06/18 04:25 MCH 31.1 pg (27.0-31.0) H 06/06/18 04:25 MCHC 33.6 g/dL (33.0-37.0) 06/06/18 04:25 RDW 13.1 % (11.5-14.5) 06/06/18 04:25 Plt Count 196 K/uL (130-400) 06/06/18 04:25 MPV 8.4 fl (7.2-11.7) 06/02/18 06:10 Neut % (Auto) 86.6 % (50.0-75.0) H 06/02/18 06:10 Lymph % (Auto) 6.2 % (20.0-40.0) L 06/02/18 06:10 [place] % (Auto) 6.4 % (0.0-10.0) 06/02/18 06:10 Eos % (Auto) 0.3 % (0.0-4.0) 06/02/18 06:10 Baso % (Auto) 0.5 % (0.0-2.0) 06/02/18 06:10 Neut # (Auto) 17.3 K/uL (1.8-7.0) H 06/02/18 06:10 Lymph # (Auto) 1.2 K/uL (1.0-4.3) 06/02/18 06:10 [place] # (Auto) 1.3 K/uL (0.0-0.8) H 06/02/18 06:10 Eos # (Auto) 0.1 K/uL (0.0-0.7) 06/02/18 06:10 Baso # (Auto) 0.1 K/uL (0.0-0.2) 06/02/18 06:10 Neutrophils % (Manual) 87 % (42-75) H 06/01/18 19:30 Lymphocytes % (Manual) 10 % (20-50) L 06/01/18 19:30 Monocytes % (Manual) 3 % (0-10) 06/01/18 19:30 Platelet Estimate Normal (NORMAL) 06/01/18 19:30 RBC Morphology Normal (NORMAL) 06/01/18 19:30 PT 14.6 Seconds (9.8-13.1) H 06/01/18 19:30 INR 1.2 06/01/18 19:30 APTT 26.6 Seconds (25.6-37.1) 06/01/18 19:30 pO2 59 mm/Hg (30-55) H 06/01/18 22:35 VBG pH 7.43 (7.32-7.43) 06/01/18 22:35 VBG pCO2 34 mmHg (40-60) L 06/01/18 22:35 VBG HCO3 23.9 mmol/L 06/01/18 22:35 VBG Total CO2 23.6 mmol/L (22-28) 06/01/18 22:35 VBG O2 Sat (Calc) 95.9 % (40-65) H 06/01/18 22:35 VBG Base Excess -1.1 mmol/L (0.0-2.0) L 06/01/18 22:35 VBG Potassium 2.9 mmol/L (3.6-5.2) L 06/01/18 22:35 Sodium 137.0 mmol/L (132-148) 06/01/18 22:35 Chloride 105.0 mmol/L (98-107) 06/01/18 22:35 Glucose 103 mg/dL (75-110) 06/01/18 22:35 Lactate 1.3 mmol/L (0.7-2.1) 06/01/18 22:35 FiO2 21.0 % 06/01/18 22:35 Sodium 138 mmol/l (132-148) 06/06/18 04:25 Potassium 3.7 MMOL/L (3.6-5.0) 06/06/18 04:25 Chloride 105 mmol/L (98-107) 06/06/18 04:25 Carbon Dioxide 24 mmol/L (22-30) 06/06/18 04:25 Anion Gap 13 (10-20) 06/06/18 04:25 BUN 14 mg/dl (9-20) 06/06/18 04:25 Creatinine 0.7 mg/dl (0.8-1.5) L 06/06/18 04:25 Est GFR ( Amer) > 60 06/06/18 04:25 Est GFR (Non-Af Amer) > 60 06/06/18 04:25 Random Glucose 91 mg/dL (75-110) 06/06/18 04:25 Calcium 8.7 mg/dL (8.4-10.2) 06/06/18 04:25 Phosphorus 1.1 mg/dl (2.5-4.5) L 06/01/18 19:30 Magnesium 1.6 MG/DL (1.6-2.3) 06/01/18 19:30 Total Bilirubin 1.1 mg/dl (0.2-1.3) 06/03/18 04:55 AST 27 U/L (17-59) 06/03/18 04:55 ALT 27 U/L (21-72) 06/03/18 04:55 Alkaline Phosphatase 61 U/L (38-126) 06/03/18 04:55 Troponin I 0.1510 ng/mL (0.00-0.120) H* 06/02/18 12:15 Total Protein 6.6 G/DL (6.3-8.2) 06/03/18 04:55 Albumin 3.4 g/dL (3.5-5.0) L 06/03/18 04:55 Globulin 3.2 gm/dL (2.2-3.9) 06/03/18 04:55 Albumin/Globulin Ratio 1.1 (1.0-2.1) 06/03/18 04:55 Triglycerides 70 mg/DL (0-149) D 06/03/18 04:55 Cholesterol 132 mg/dL (0-199) 06/03/18 04:55 LDL Cholesterol Direct 84 mg/dL (0-129) 06/03/18 04:55 HDL Cholesterol 29 MG/DL (30-70) L 06/03/18 04:55 Prostate Specific Ag 5.56 ng/ML (0.00-4.0) H 06/03/18 04:55 Vitamin B12 401 pg/mL (239-931) 06/02/18 06:10 TSH 3rd Generation 2.29 mIU/ML (0.46-4.68) 06/02/18 06:10 Venous Blood Potassium 2.9 mmol/L (3.6-5.2) L 06/01/18 22:35 Urine Color Yellow (YELLOW) 06/01/18 19:42 Urine Clarity Slighty-cloudy (Clear) 06/01/18 19:42 Urine pH 6.0 (5.0-8.0) 06/01/18 19:42 Ur Specific [place] 1.014 (1.003-1.030) 06/01/18 19:42 Urine Protein 30 mg/dL (NEGATIVE) 06/01/18 19:42 Urine Glucose (UA) Neg mg/dL (NEGATIVE) 06/01/18 19:42 Urine Ketones Negative mg/dL (NEGATIVE) 06/01/18 19:42 Urine Blood Moderate (NEGATIVE) 06/01/18 19:42 Urine Nitrate Negative (NEGATIVE) 06/01/18 19:42 Urine Bilirubin Negative (NEGATIVE) 06/01/18 19:42 Urine Urobilinogen 0.2-1.0 mg/dL (0.2-1.0) 06/01/18 19:42 Ur Leukocyte Esterase Mod Amie/uL (Negative) 06/01/18 19:42 Urine RBC (Auto) 10 /hpf (0-3) H 06/01/18 19:42 Urine Microscopic WBC 22 /hpf (0-5) H 06/01/18 19:42 Urine Bacteria Rare (<OCC) 06/01/18 19:42 Hyaline Casts 0-2 /hpf (0-2) 06/01/18 19:42 Stool Occult Blood Negative (NEGATIVE) 06/04/18 20:00 Influenza Typ A,B (EIA) Negative for flu a/b (NEGATIVE) 06/01/18 19:30 - Hospital Course Hospital Course: 62 y/o M with NO PMHx presented to ED due to fever, chest pressure and generalized weakness. Pt was noted to have UTI and admitted for management. IV Ceftriaxone was initiated. Blood and Urine cultures showed Klebsiella pneumonia sensitive to Rocephin. Infectious disease specialist evaluated pt who recommended discharge on 14 days of PO Ciprofloxacin. CT Abdomen/Pelvis showed prostatomegaly with calcifications. Urology consulted and will f/u as outpatient. Pt remained afebrile for the last 2 days; however, BP remained elevated, Amlodipine 10mg PO daily was initiated. Today, pt was seen and examined by bedside with Dr Garcia, pt is tolerating PO, stable for discharged. Meds: --Ciprofloxacin 500mg PO Q12H x 14 days --Amlodipine 10mg PO daily. - Date & Time of H&P Date of H&P: 06/03/18 Time of H&P: 07:55 Discharge Exam - Head Exam Head Exam: NORMOCEPHALIC - Eye Exam Eye Exam: EOMI, Normal appearance - ENT Exam ENT Exam: Mucous Membranes Moist - Neck Exam Neck exam: Full Rom, Normal Inspection - Respiratory Exam Respiratory Exam: Clear to PA & Lateral, NORMAL BREATHING PATTERN - Cardiovascular Exam Cardiovascular Exam: REGULAR RHYTHM, +S1, +S2 - GI/Abdominal Exam GI & Abdominal Exam: Normal Bowel Sounds, Soft, Unremarkable. absent: Dis tended, Guarding, Hyperactive Bowel Sounds, Tenderness - Extremities Exam Extremities exam: full ROM, normal inspection - Neurological Exam Neurological exam: Alert, Oriented x3 Discharge Plan - Discharge Medications Prescriptions: amLODIPine [Norvasc] 10 mg PO DAILY #30 tab Ciprofloxacin [Cipro] 500 mg PO Q12 #28 tab - Follow Up Plan Condition: STABLE Disposition: HOME/ ROUTINE Instructions: Urinary Tract Infection, Adult (DC), Chest Pain (DC), Sepsis, Adult (DC) Referrals: Mateus Mccray MD [Staff Provider] - Santhosh Garcia MD [Staff Provider] - Kang Javier MD [Staff Provider] - Leon Ramos MD [Staff Provider] -
--- NOTE | 2018-06-06 22:53 | CON ---
DATE: 06/06/2018 COMPREHENSIVE UROLOGIC CONSULTATION. TIME OF CONSULTATION: Roughly 12:30 p.m. BRIEF HISTORY: The patient is a 62-year-old white male, who presents with acute onset of fever and chills with the temperature spiked to 105 requiring him to come to [facility] ER on 06/02/2018. The patient was admitted for the treatment of the sepsis. The patient denied any history of any dysuria, gross hematuria, renal colic, or abdominal pain. His urinalysis was positive for wbc's and rbc's and eventually, both urine cultures and blood cultures were positive for Klebsiella pneumonia, sensitive to cephalosporins, Bactrim, and Cipro, and the patient was treated with IV Rocephin with a good response. The patient is currently followed by Dr. Ramos of Infectious Disease, and eventually, we will discharge the patient home on oral antibiotics. An abdominopelvic CT done on 06/04/2018 showed some abnormalities in the lungs with fatty infiltration of the liver. Gallbladder was unremarkable, pancreas was unremarkable, and spleen was unremarkable. Adrenals also were unremarkable with no mass. They kidneys and ureters showed a subcentimeter equivocal hypodensity. The left lower renal pole corticomedullary junction appears open and it was too small to accurately characterize. A renal ultrasound should be considered to help with characterization. There was also a 7-mm hypodensity, more discrete in the anterior right renal mid pole cortex and there was minimal intrarenal fullness to both kidneys, no peripheral caliectasis seen. The appendix was also unremarkable and the urinary bladder was unremarkable. The prostate measured 5.4 x 4.7 cm and there were coarse prostatic calcifications present. Seminal vesicles were fairly symmetrical and otherwise unremarkable. There was a moderately distended urinary bladder. No bladder wall gross thickening seen. No gross bladder intraluminal masses. The diagnostic impression showed subcentimeter renal hypodensities on the left in the lower renal pole, was more equivocal and the findings were too small to characterize. Renal ultrasound should be considered and targeted to the mid right renal pole and left lower renal pole evaluation. The renal ultrasound done on 06/05/2018 and compared to the abdominopelvic CT showed no hydronephrosis, solitary non-shadowing echogenic foci in the right interpole region and left lower pole could represent prominent renal sinus fat or non-shadowing calcifications. The patient's family history is essentially noncontributory. He has no family history of any cancer, and he himself has no history of cancer including prostate cancer. He has no history of any sexually transmitted diseases and no ED. SOCIAL HISTORY: He has no history of any tobacco use and he is only a social drinker. ALLERGIES: NO KNOWN ALLERGIES TO ANY MEDICATIONS. PHYSICAL EXAMINATION: VITAL SIGNS: Today, 06/06/2018 show temperature of 98.3, pulse rate was 84, blood pressure 153/93, respiratory rate was 18, and O2 saturation on room air was 97%. ABDOMEN: Today, his abdomen is soft, not distended, and nontender. No CVA tenderness and no suprapubic tenderness. GENITALIA: His testicles were down bilaterally, the right much smaller than the left, which the patient says he has had since young age. No testicular masses. RECTAL: Normal rectal tone without fluctuance or masses. Prostate is slightly enlarged, wide, smooth, symmetrical, nontender without nodules or indurations with a palpable median sulcus. EXTREMITIES: He has full range of motion of both upper and lower extremities. No leg edema or calf tenderness present. LABORATORY DATA: His laboratory evaluation today, CBC shows a WBC count of 7, hemoglobin of 13.9, and hematocrit 41.5 with a platelet count of 196,000. His chem profile shows a sodium of 138, potassium 3.7, chloride 105, CO2 of 24, BUN and creatinine 14 and 0.7 respectively with a GFR of greater than 60. Random glucose was 91. Calcium 8.7. ASSESSMENT: Diagnostic impression to this patient is most likely urosepsis. PLAN: Plan for this patient is to complete his treatment with IV antibiotics and the patient can be discharged home on oral antibiotics as per Dr. Ramos (ID). The patient can be seen in office followup regarding urology in two weeks. Mateus Mccray MD MTDMary Jo
== END 2018-06-06 14:43 | disposition home or self-care (01) | DRG 871 ==
LOC: H.ER 18:53 → H.ERHOLD 23:03 → H.TEL 06-02 03:57 → OBSVTOIN 06-02 15:45
PROVIDERS: ADMIT Internal Medicine; ATTEND Internal Medicine
PROC: 3E0234Z Introduction of Serum, Toxoid and Vaccine into Muscle, Percutaneous Approach (ICD-10-PCS; principal; 2018-06-02)
PROC: 3E02340 Introduction of Influenza Vaccine into Muscle, Percutaneous Approach (ICD-10-PCS; 2018-06-02)
DX: A41.50 Gram-negative sepsis, unspecified (principal); J15.0 Pneumonia due to Klebsiella pneumoniae; N39.0 Urinary tract infection, site not specified; R07.89 Other chest pain; Z23 Encounter for immunization; I25.2 Old myocardial infarction; I10 Essential (primary) hypertension; N40.0 Benign prostatic hyperplasia without lower urinary tract symptoms; Z82.49 Family history of ischemic heart disease and other diseases of the circulatory system; K76.0 Fatty (change of) liver, not elsewhere classified